=== PATIENT | female | born 1995 | race Caucasian/White ===

== ENCOUNTER 2016-10-04 12:40 | Emergency (ER) | payer MEDICAID ==
[2016-10-04 13:19] VITALS: BP 135/62
== END 2016-10-04 17:28 | disposition left against medical advice (07) ==
LOC: ER 12:40
DX: Z53.21 Procedure and treatment not carried out due to patient leaving prior to being seen by health care provider (principal)

== ENCOUNTER 2016-10-04 19:09 | Emergency (ER) | payer MEDICAID ==
[2016-10-04] MEDS ORDERED: IBUPROFEN 600 MG TABLET PO ONE (21:22)
--- NOTE | 2016-10-04 21:24 | ER Document Report ---
ED ENT - General Chief Complaint: Swollen glands in neck. Stated Complaint: POSSIBLE SWOLLEN NECK LYMPH NODES Time Seen by Provider: 10/04/16 20:54 Mode of Arrival: Ambulatory Notes: -year-old female presents to ED for swollen lymph nodes in the neck bilaterally. She states she has noticed of the 2 days. Tenderness. Denies any signs or symptoms of cold sore throat or any open sores toothache. TRAVEL OUTSIDE OF THE [place] IN LAST 30 DAYS: No - HPI Patient complains to provider of: Other - Lymphadenopathy Onset: Other - 2 days Onset/Duration: Gradual Quality of pain: Other - Sore Severity: Moderate Pain Level: 3 Location of pain: Other - Enlarged lymph nodes bilaterally Associated symptoms: Swollen glands Similar symptoms previously: No Recently seen / treated by doctor: No - Related Data Allergies/Adverse Reactions: No Known Allergies Allergy (Verified 10/04/16 13:16) Past Medical History - General Information source: Patient - Social History Smoking Status: Current Every Day Smoker Cigarette use (# per day): Yes - 5 Cigarettes a day Chew tobacco use (# tins/day): No Smoking Education Provided: Yes - Less than 2 minutes Frequency of alcohol use: Occasional Drug Abuse: None 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 denies: Arthritis, CAD, COPD, CVA, DM, Hyperlipidemia, Hypertension, Thyroid Disfunction - Past Medical History Cardiac Medical History: Reports: None Pulmonary Medical History: Reports: None EENT Medical History: Reports: None Neurological Medical History: Reports: None Endocrine Medical History: Reports: None Renal/ Medical History: Reports: None Malignancy Medical History: Reports: None GI Medical History: Reports: None Musculoskeltal Medical History: Reports None Skin Medical History: Reports None Psychiatric Medical History: Reports: None Traumatic Medical History: Reports: None Infectious Medical History: Reports: None Surgical Hx: Negative Past Surgical History: Reports: None - Immunizations Immunizations up to date: Yes Review of Systems - Review of Systems Constitutional: No symptoms reported EENT: Other - Swollen lymph nodes Cardiovascular: No symptoms reported Respiratory: No symptoms reported Gastrointestinal: No symptoms reported Genitourinary: No symptoms reported Female Genitourinary: No symptoms reported Musculoskeletal: No symptoms reported Skin: No symptoms reported Hematologic/Lymphatic: No symptoms reported Neurological/Psychological: No symptoms reported Physical Exam - Vital signs Vitals: Temp Pulse Resp BP Pulse Ox 98.9 F 88 17 121/50 L 100 10/04/16 19:45 10/04/16 19:45 10/04/16 19:45 10/04/16 19:45 10/04/16 19:45 Interpretation: Normal - General General appearance: Appears well, Alert - HEENT Head: Normocephalic, Atraumatic Eyes: Normal Pupils: PERRL Ears: Normal External canal: Normal Tympanic membrane: Normal Sinus: Normal Nasal: Normal Mouth/Lips: Normal Pharynx: Normal Neck: Anterior cervical chain - Respiratory Respiratory status: No respiratory distress Chest status: Nontender Breath sounds: Normal Chest palpation: Normal - Cardiovascular Rhythm: Regular Heart sounds: Normal auscultation Murmur: No - Abdominal Inspection: Normal Distension: No distension Bowel sounds: Normal Tenderness: Nontender Organomegaly: No organomegaly - Back Back: Normal, Nontender - Extremities General upper extremity: Normal inspection, Nontender, Normal color, Normal ROM , Normal temperature General lower extremity: Normal inspection, Nontender, Normal color, Normal ROM , Normal temperature, Normal weight bearing. No: Nakia's sign - Neurological Neuro grossly intact: Yes Cognition: Normal Orientation: AAOx4 Steff Coma Scale Eye Opening: Spontaneous [place] Coma Scale Verbal: Oriented Steff Coma Scale Motor: Obeys Commands [place] Coma Scale Total: 15 Speech: Normal Motor strength normal: LUE, RUE, LLE, RLE Sensory: Normal - Psychological Associated symptoms: Normal affect, Normal mood - Skin Skin Temperature: Warm Skin Moisture: Dry Skin Color: Normal Course - Vital Signs Vital signs: Temp Pulse Resp BP Pulse Ox 98.9 F 88 17 121/50 L 100 10/04/16 19:45 10/04/16 19:45 10/04/16 19:45 10/04/16 19:45 10/04/16 19:45 Discharge - Discharge Clinical Impression: Lymphadenopathy of head and neck Condition: Stable Disposition: HOME, SELF-CARE Instructions: Family Physicians / Practices Additional Instructions: Lymphadenopathy You have enlargement of lymph glands, called lymphadenopathy. Lymph glands filter tissue fluids. They help to fight infection. Most of the time, enlarged lymph glands are not serious. Lymph glands may react to a viral or bacterial infection by becoming swollen and painful. When the infection goes away, the glands shrink. Sometimes a lymph gland will remain enlarged for a long time after an infection. Occasionally, a lymph gland may be overwhelmed by infection and form an abscess. If an enlarged lymph gland has signs that are suspicious for tumor, the doctor will recommend a biopsy. A suspicious gland usually is NOT painful, grows very slowly, and is rock-hard to touch. See the doctor or return if there is increasing swelling and redness, high fever, difficulty breathing, or any other change for the worse. Anti-Inflammatory Medication You have received a prescription for an antiinflammatory agent. This is an excellent, safe drug for pain control. In addition, it has potent antiinflammatory effects which are beneficial, especially in the treatment of injuries, arthritis, or tendonitis. It's best to take this medicine with food. Persons with ulcer disease or allergy to aspirin should notify their physician of this before taking this drug. Take the medication exactly as prescribed. Don't take additional doses unless instructed to do so by your doctor. If you develop wheezing, shortness of breath, hives, faintness, stomach pain, vomiting, or dark black stools, return for re-evaluation at once. FOLLOW-UP CARE: If you have been referred to a physician for follow-up care, call the physician s office for an appointment as you were instructed or within the next two days. If you experience worsening or a significant change in your symptoms, notify the physician immediately or return to the Emergency Department at any time for re-evaluation. Forms: Smoking Cessation Education, Return to Work
[2016-10-04 21:54] VITALS: BP 111/53
== END 2016-10-04 21:54 | disposition home or self-care (01) ==
LOC: ER 19:09
DX: R59.0 Localized enlarged lymph nodes (principal); F17.210 Nicotine dependence, cigarettes, uncomplicated; Z71.6 Tobacco abuse counseling
CPT/HCPCS: 99283

== ENCOUNTER → 2017-10-02 | Outpatient (CLI) | payer BC, MEDICAID ==
[2017-10-02 17:14] LABS: ABSOLUTE EOSINOPHILS # (AUTO) 0.1 10^3/uL (0.0-0.6); ABSOLUTE LYMPHOCYTES (AUTO) 1.1 10^3/uL (0.5-4.7); ABSOLUTE MONOCYTES (AUTO) 0.8 10^3/uL (0.1-1.4); ABSOLUTE NEUT (AUTO) 8.6 10^3/uL (1.7-8.2); BASOPHILS % (AUTO) 0.3 % (0-2); EOSINOPHILS % (AUTO) 0.6 % (0-6); HEMOGLOBIN 14.1 g/dL (12.0-15.5); LYMPHOCYTES % (AUTO) 10.7 % (13-45); MEAN CORPUSCULAR HEMOGLOBIN 30.4 pg (27.0-33.4); MEAN CORPUSCULAR HGB CONC 34.3 g/dL (32.0-36.0); MEAN CORPUSCULAR VOLUME 89 fl (80-97); MONOCYTES % (AUTO) 7.4 % (3-13); PLATELET COUNT 212 10^3/uL (150-450); RED BLOOD COUNT 4.63 10^6/uL (3.72-5.28); RED CELL DISTRIBUTION WIDTH 14.5 % (11.5-14.0); TOTAL CELLS COUNTED % (AUTO) 100 %; WHITE BLOOD COUNT 10.6 10^3/uL (4.0-10.5)
[2017-10-02 17:33] LABS: A TYPE INFLUENZA AG NEGATIVE (NEGATIVE); B INFLUENZA AG NEGATIVE (NEGATIVE)
== END ==
LOC: OD 16:39
PROVIDERS: ATTEND Nurse Practitioner Acute Care
DX: R50.9 Fever, unspecified (principal)
CPT/HCPCS: 36415; 85025; 87804

== ENCOUNTER 2017-10-04 15:28 | Emergency (ER) | payer BC, MEDICAID ==
[2017-10-04] MEDS ORDERED: NORMAL SALINE 1000 ML 2,000 ML IV ONE (16:03)
[2017-10-04] MEDS ORDERED: KETOROLAC TROMETHAMINE INJ/PF 30 MG/1 ML SDV IV ONE (16:03)
--- NOTE | 2017-10-04 16:10 | ER Document Report ---
ED General - General Chief Complaint: Congestion Stated Complaint: COUGH/CONGESTION Time Seen by Provider: 10/04/17 15:46 Mode of Arrival: Ambulatory Information source: Patient TRAVEL OUTSIDE OF THE [place] IN LAST 30 DAYS: No - HPI Patient complains to provider of: fever, weakness Notes: Patient is here with complaints of fever and weakness. This is a healthy 21- year-old female with no chronic medical conditions. Immunizations are up-to- date. She denies any recent travel outside the [place] or known specific sick contacts. She states that on Monday she started to feel like she was having the flu. She was having fever cough and congestion. She was seen at her primary care office on Monday and reports that she had a negative influenza screen and was placed on Zithromax. She has had 2 doses of Zithromax since that time. She states that today she feels worse than she did before. She continues to have a cough. She states that she has a rash that she developed on Monday. She has had a few episodes of posttussive emesis. Denies any nausea or vomiting otherwise. No diarrhea. She denies any dysuria or hematuria. She denies any blurred or loss vision. She denies any unilateral numbness, tingling, weakness. She states that she noticed that her eyes seem to be yellow today. He does complain of some mild right upper quadrant tenderness. She denies any recent blood transfusions, she denies using IV drugs. She states that she did get a new tattoo 4 months ago, but it everything was sterile that was used. She states that her last sexual activity was 2 months ago. She denies taking large amounts of Tylenol. She denies any vaginal discharge. She denies any difficulty breathing. Complains of some occasional intermittent headaches, but no significant headache and no neck stiffness. She denies any other complaints at this time. - Related Data Allergies/Adverse Reactions: No Known Allergies Allergy (Verified 10/04/17 15:32) Past Medical History - Social History Smoking Status: Unknown if Ever Smoked Frequency of alcohol use: None Drug Abuse: None Family History: Malignancy. denies: Arthritis, CAD, COPD, CVA, DM, Hyperlipidemia, Hypertension, Thyroid Disfunction Patient has suicidal ideation: No Patient has homicidal ideation: No Renal/ Medical History: Denies: Hx Peritoneal Dialysis - Immunizations Immunizations up to date: Yes Review of Systems - Review of Systems -: Yes All other systems reviewed and negative Physical Exam - Vital signs Vitals: Temp Pulse Resp BP Pulse Ox 98.8 F 128 H 18 123/68 100 10/04/17 15:36 10/04/17 15:36 10/04/17 15:36 10/04/17 15:36 10/04/17 15:36 - Notes Notes: GENERAL: alert, cooperative, nontoxic, no distress. HEAD: normocephalic, atraumatic EYES: conjunctiva pink without discharge, no external redness or swelling. Scleral icterus bilaterally. EARS: no external swelling, no external redness. TMs pearly portillo with normal landmarks and no perforation. No erythema. NOSE: atraumatic, no external swelling MOUTH/THROAT: mucous membranes moist and pink, posterior pharynx without swelling, exudate. Mild redness. No intraoral lesions. No trismus or drooling. NECK: soft, supple, full range of motion, no meningismus. CHEST: no distress, lungs clear and equal throughout. No wheezing, rales, rhonchi. CARDIAC: regular rhythm, tachycardia, no murmur, normal capillary refill, normal pulses. No peripheral edema noted. ABDOMEN: Soft, minimal tenderness to palpation of the right upper quadrant. No rebound tenderness or guarding. No pedal splenomegaly. No mass. BACK: full range of motion, no CVA tenderness. EXTREMITIES: full range of motion of all extremities. No redness, no swelling. NEURO: alert and oriented x 3, no focal deficits, full range of motion of all extremities. PYSCH: appropriate mood, affect. Patient is cooperative. SKIN: pink, warm, dry, red macular rash to the arms, upper legs, palms of the hands, soles of the feet. No petechiae. No vesicles. Course - Re-evaluation Re-evalutation: 10/04/17 18:59 Patient is nontoxic-appearing with stable vitals. Initially when she arrived, she was mildly tachycardic, this has improved with IV fluids. Patient states that she has been feeling ill for the last 4 days. She has had "flulike symptoms" including cough, congestion, fever and weakness. She was seen at her primary care doctor's office 2 days ago and was started on Zithromax. She reports having a negative influenza screen at that time. Since that time she seems to be feeling worse. She developed a rash. She also noticed that her eyes seem to be turning yellow. She denies any recent travel outside the [place], IV drug use, significant alcohol or Tylenol intake. She does report getting a new tattoo 4 months ago. She denies any recent blood transfusions. Patient labs show normal white blood cell count, lactate minimally elevated at 2.8. Potassium is slightly low at 3.3. Remainder of her electrolytes are not significantly abnormal. Normal kidney function. LFTs are elevated with a total bilirubin of 5.2, direct bilirubin of 4.2, AST of 124, ALT of 169, alk phos of 419. Rapid strep and rapid mono are negative. Blood gas is normal with a pH of 7.42, PCO2 of 36, bicarbonate 23. HIV, hepatitis, Lyme, [place] spotted fever are all pending at this time. Right upper quadrant sound is negative for acute findings, chest x-ray is negative. Patient is feeling significantly better after IV fluids, Toradol. Urinalysis is negative. Patient appears to be experiencing a nonspecific hepatitis at this time. She does not appear to be septic. [place] spotted fever is unlikely at this time. RPR is currently pending as well. This point the patient will be discharged home with a referral to GI. She was also instructed to follow-up with her primary care doctor at the next available appointment. She should return to the emergency department immediately if she develops any worsening symptoms, high fever, persistent vomiting, or has any further concerns. The patient's emergency department workup and current diagnosis were explained to the patient and or family. Follow-up instructions were provided. Medications if prescribed were discussed. Instructions for when to return to the emergency department including specific worrisome symptoms were discussed with the patient and/or family. The patient is noted to have elevated blood pressure during today's emergency department visit. The patient was informed of this finding. The patient was instructed that this may be related to pre-hypertension and requires further evaluation with a primary care provider. The patient has no hypertensive symptoms at this time. - Vital Signs Vital signs: Temp Pulse Resp BP Pulse Ox 98.9 F 129 H 18 123/68 100 10/04/17 16:28 10/04/17 16:28 10/04/17 15:36 10/04/17 15:36 10/04/17 15:36 - Laboratory Result Diagrams: 10/04/17 16:25 10/04/17 16:25 Laboratory results interpreted by me: 10/04/17 10/04/17 10/04/17 16:25 16:25 16:25 Hct 35.7 L RDW 14.4 H APTT Sodium 136.4 L Potassium 3.3 L Chloride 97 L BUN 6 L Glucose 111 H Lactic Acid 2.8 H Total Bilirubin 5.2 H Direct Bilirubin 4.2 H AST 124 H ALT 169 H Alkaline Phosphatase 419 H Urine Blood Urine Urobilinogen 10/04/17 10/04/17 16:25 18:06 Hct RDW APTT 38.8 H Sodium Potassium Chloride BUN Glucose Lactic Acid Total Bilirubin Direct Bilirubin AST ALT Alkaline Phosphatase Urine Blood SMALL H Urine Urobilinogen 4.0 H - Diagnostic Test Radiology reviewed: Image reviewed, Reports reviewed - Chest x-ray negative, right upper quadrant ultrasound negative. Discharge - Discharge Clinical Impression: Hepatitis, Hypokalemia Condition: Stable Disposition: HOME, SELF-CARE Instructions: Hepatitis ([facility]) Additional Instructions: Drink lots of water. Take Motrin as needed for pain or fever. Avoid taking Tylenol, or drinking alcohol. Follow-up with your primary care doctor at the next available appointment. Follow-up with GI at the next available appointment. Follow-up sooner for increasing pain, fever, persistent vomiting, difficulty breathing or swallowing, or for any further concerns. Your blood pressure was elevated during today's visit. Have this rechecked with your doctor. Forms: Elevated Blood Pressure, Smoking Cessation Education Referrals: KANDIS CAMPBELL NP [Primary Care Provider] - Follow up as needed LANDRY CONCEPCION MD [ACTIVE STAFF] - Follow up as needed
[2017-10-04] MEDS ORDERED: KETOROLAC TROMETHAMINE INJ/PF 30 MG/1 ML SDV ONE (16:19)
[2017-10-04 16:57] LABS: ABSOLUTE EOSINOPHILS # (AUTO) 0.3 10^3/uL (0.0-0.6); ABSOLUTE LYMPHOCYTES (AUTO) 1.5 10^3/uL (0.5-4.7); ABSOLUTE MONOCYTES (AUTO) 1.2 10^3/uL (0.1-1.4); ABSOLUTE NEUT (AUTO) 7.5 10^3/uL (1.7-8.2); BASOPHILS % (AUTO) 0.4 % (0-2); EOSINOPHILS % (AUTO) 2.4 % (0-6); HEMATOCRIT 35.7 % (36.0-47.0); HEMOGLOBIN 12.3 g/dL (12.0-15.5); LYMPHOCYTES % (AUTO) 14.7 % (13-45); MEAN CORPUSCULAR HEMOGLOBIN 30.3 pg (27.0-33.4); MEAN CORPUSCULAR HGB CONC 34.5 g/dL (32.0-36.0); MEAN CORPUSCULAR VOLUME 88 fl (80-97); MONOCYTES % (AUTO) 11.5 % (3-13); PLATELET COUNT 227 10^3/uL (150-450); RED BLOOD COUNT 4.06 10^6/uL (3.72-5.28); RED CELL DISTRIBUTION WIDTH 14.4 % (11.5-14.0); TOTAL CELLS COUNTED % (AUTO) 100 %; WHITE BLOOD COUNT 10.5 10^3/uL (4.0-10.5)
[2017-10-04 17:02] LABS: INTERNATIONAL RATION (INR) 1.14; PROTHROMBIN TIME 15.2 SEC (11.4-15.4)
[2017-10-04 17:03] LABS: PARTIAL THROMBOPLASTIN TIME 38.8 SEC (23.5-35.8); VENOUS BLOOD BASE EXCESS -0.8 mmol/L; VENOUS BLOOD HCO3 23.1 mmol/L (20-32); VENOUS BLOOD PCO2 36.8 mmHg (35-63); VENOUS BLOOD PH 7.42 (7.30-7.42)
[2017-10-04 17:16] LABS: ALANINE AMINOTRANSFERASE 169 U/L (9-52); ALBUMIN 3.8 g/dL (3.5-5.0); ALKALINE PHOSPHATASE 419 U/L (38-126); ANION GAP 15 (5-19); ASPARTATE AMINO TRANSFERASE 124 U/L (14-36); BILIRUBIN,DIRECT 4.2 mg/dL (0.0-0.4); BILIRUBIN,TOTAL 5.2 mg/dL (0.2-1.3); BLOOD UREA NITROGEN 6 mg/dL (7-20); CALCIUM 9.2 mg/dL (8.4-10.2); CARBON DIOXIDE 24 mmol/L (22-30); CHLORIDE 97 mmol/L (98-107); GLUCOSE 111 mg/dL (75-110); POTASSIUM 3.3 mmol/L (3.6-5.0); SODIUM 136.4 mmol/L (137-145); TOTAL PROTEIN 7.1 g/dL (6.3-8.2)
--- NOTE | 2017-10-04 17:36 | RADIOLOGY REPORT (SQ) ---
EXAM DESCRIPTION: CHEST 2 VIEWS COMPLETED DATE/TIME: 10/04/2017 5:11 pm REASON FOR STUDY: fever COMPARISON: 01/03/2013 EXAM PARAMETERS: NUMBER OF VIEWS: two views TECHNIQUE: Digital Frontal and Lateral radiographic views of the chest acquired. RADIATION DOSE: NA LIMITATIONS: none FINDINGS: LUNGS AND PLEURA: No opacities, masses or pneumothorax. No pleural effusion. MEDIASTINUM AND HILAR STRUCTURES: No masses or contour abnormalities. HEART AND VASCULAR STRUCTURES: Heart normal size. No evidence for failure. BONES: No acute findings. HARDWARE: None in the chest. OTHER: No other significant finding. IMPRESSION: NO ACUTE RADIOGRAPHIC FINDING IN THE CHEST. TECHNICAL DOCUMENTATION: JOB ID: [id number] [employer]- All Rights Reserved Reading location - IP/workstation name: [email or web address]
--- NOTE | 2017-10-04 17:45 | RADIOLOGY REPORT (SQ) ---
EXAM DESCRIPTION: U/S ABDOMEN LIMITED W/O DOP COMPLETED DATE/TIME: 10/04/2017 5:21 pm REASON FOR STUDY: ruq pain, jaundice COMPARISON: None. TECHNIQUE: Dynamic and static grayscale images acquired of the abdomen and recorded on PACS. Additio nal selected color Doppler and spectral images recorded. LIMITATIONS: None. FINDINGS: PANCREAS: No masses. Visualized pancreatic duct normal caliber. LIVER: No masses. Echotexture normal. LIVER VASCULATURE: Normal directional flow of the main portal vein. GALLBLADDER: No stones. Normal wall thickness. No pericholecystic fluid. ULTRASOUND-DETECTED CORONA'S SIGN: Negative. INTRAHEPATIC DUCTS AND COMMON DUCT: CBD and intrahepatic ducts normal caliber. No filling defects. INFERIOR VENA CAVA: Normal flow. AORTA: No aneurysm. RIGHT KIDNEY: Normal size. Normal echogenicity. No solid or suspicious masses. No hydronephrosis. No calcifications. PERITONEAL AND RIGHT PLEURAL SPACE: No ascites or effusions. OTHER: No other significant findings. IMPRESSION: NORMAL RIGHT UPPER QUADRANT ULTRASOUND. TECHNICAL DOCUMENTATION: JOB ID: [id number] [employer]- All Rights Reserved Reading location - IP/workstation name: [email or web address]
[2017-10-04 18:24] LABS: APPEARANCE,URINE CLEAR; BILIRUBIN,URINE NEGATIVE (NEGATIVE); GLUCOSE, URINE NEGATIVE (NEGATIVE); KETONES,URINE NEGATIVE (NEGATIVE); LEUKOCYTE ESTERASE,URINE NEGATIVE (NEGATIVE); NITRITE,URINE NEGATIVE (NEGATIVE); PROTEIN,URINE NEGATIVE (NEGATIVE); URINE SPECIFIC GRAVITY 1.005
[2017-10-04 18:30] LABS: COLOR,URINE YELLOW
[2017-10-04] MEDS ORDERED: POTASSIUM CHLORIDE 10 MEQ TABLET.SA PO ONE (18:59)
[2017-10-04 19:13] VITALS: BP 117/58
[2017-10-06 06:39] LABS: HEPATITIS A AB IGM Negative (Negative); HEPATITIS B CORE AB IGM Negative (Negative); HEPATITS B SURFACE ANTIGEN Negative (Negative)
[2017-10-07 11:59] LABS: HEPATITIS C VIRUS ANTIBODY <0.1 s/co ratio (0.0-0.9); LYME DISEASE IGM AB <0.80 index (0.00-0.79)
[2017-10-07 11:59] LABS: ROCKY MTN SPOTTED FEV IGG EIA Negative (Negative)
== END 2017-10-04 19:30 | disposition home or self-care (01) ==
LOC: ER 15:28
DX: K75.9 Inflammatory liver disease, unspecified (principal); E87.6 Hypokalemia; R50.9 Fever, unspecified; R53.1 Weakness; R05 Cough; R21 Rash and other nonspecific skin eruption; R10.811 Right upper quadrant abdominal tenderness; R51 Headache; R00.0 Tachycardia, unspecified; R03.0 Elevated blood-pressure reading, without diagnosis of hypertension
CPT/HCPCS: 99284; 96361; 96374; 36415; 87040; 87070; 87880; 85025; 85610; 85730; 81025; 87077; 86308; 86592; 80053; 81001; 86757 ×2; 86701; 82803; 83605; 80074; 86618 ×2; 86617 ×2; 71046; 76705; J1885; J7030

== ENCOUNTER 2017-10-05 00:07 | Emergency (ER) | payer BC ==
[2017-10-05] MEDS ORDERED: PIPERACILLIN/TAZOBACTAM 3.375 GM VIAL IV ONE (00:24)
[2017-10-05] MEDS ORDERED: FENTANYL CITRATE INJ/PF 100 MCG/2 ML AMPUL IV ONE (00:24)
--- NOTE | 2017-10-05 00:25 | ER Document Report ---
ED General - General Chief Complaint: Flank Pain Stated Complaint: FLANK PAIN Time Seen by Provider: 10/05/17 00:22 Mode of Arrival: Medic Information source: Patient Notes: 21-year-old female presents with continued abdominal pain and vomiting. Patient notes she was just seen have been having 2 days of just not feeling well was diagnosed with hepatitis. Patient notes she has felt warm on and off. Patient states she was told to hydrate and try to but continued to vomit and presented back for reevaluation TRAVEL OUTSIDE OF THE [place] IN LAST 30 DAYS: No - HPI Onset: Just prior to arrival Onset/Duration: Sudden Quality of pain: No pain Severity: Mild Pain Level: 1 Associated symptoms: Nausea, Vomiting Exacerbated by: Denies Relieved by: Denies Similar symptoms previously: Yes Recently seen / treated by doctor: Yes - Related Data Allergies/Adverse Reactions: No Known Allergies Allergy (Verified 10/04/17 15:32) Past Medical History - Social History Smoking Status: Never Smoker Cigarette use (# per day): No Chew tobacco use (# tins/day): No Smoking Education Provided: No Family History: Malignancy. denies: Arthritis, CAD, COPD, CVA, DM, Hyperlipidemia, Hypertension, Thyroid Disfunction Renal/ Medical History: Denies: Hx Peritoneal Dialysis - Immunizations Immunizations up to date: Yes Review of Systems - Review of Systems Notes: REVIEW OF SYSTEMS: CONSTITUTIONAL : Denies fever, chills, or sweats. Denies recent illness. EENT: Denies eye, ear, throat, or mouth pain or symptoms. Denies nasal or sinus congestion or discharge. Denies throat, tongue, or mouth swelling or difficulty swallowing. CARDIOVASCULAR: Denies chest pain. Denies palpitations or racing or irregular heart beat. Denies ankle edema. RESPIRATORY: Denies cough, cold, or chest congestion. Denies shortness of breath, difficulty breathing, or wheezing. GASTROINTESTINAL: admits to abd pain nausea vomiting GENITOURINARY: Denies difficulty urinating, painful urination, burning, frequency, blood in urine, or discharge. FEMALE GENITOURINARY: Denies vaginal bleeding, heavy or abnormal periods, irregular periods. Denies vaginal discharge or odor. MUSCULOSKELETAL: Denies back or neck pain or stiffness. Denies joint pain or swelling. SKIN: Denies rash, lesions or sores. HEMATOLOGIC : Denies easy bruising or bleeding. LYMPHATIC: Denies swollen, enlarged glands. NEUROLOGICAL: Denies confusion or altered mental status. Denies passing out or loss of consciousness. Denies dizziness or lightheadedness. Denies headache. Denies weakness or paralysis or loss of use of either side. Denies problems with gait or speech. Denies sensory loss, numbness, or tingling. Denies seizures. PSYCHIATRIC: Denies anxiety or stress. Denies depression, suicidal ideation, or homicidal ideation. ALL OTHER SYSTEMS REVIEWED AND NEGATIVE. PHYSICAL EXAMINATION: GENERAL: ill-appearing, in moderate distress. HEAD: Atraumatic, normocephalic. EYES: jaundiced ENT: Nares patent, oropharynx clear without exudates. Moist mucous membranes. NECK: Normal range of motion, supple without lymphadenopathy LUNGS: Breath sounds clear to auscultation bilaterally and equal. No wheezes rales or rhonchi. HEART: tachycardic ABDOMEN: tender in the epigastric and ruq with guarding Female : deferred Musculoskeletal: Normal range of motion, no pitting or edema. No cyanosis. NEUROLOGICAL: Cranial nerves grossly intact. Normal speech, normal gait. Normal sensory, motor exams PSYCH: Normal mood, normal affect. SKIN: jaundiced Dictation was performed using [employer] voice recognition software Physical Exam - Vital signs Vitals: Temp Pulse Resp BP Pulse Ox 101.5 F H 122 H 20 114/46 L 97 10/05/17 00:10 10/05/17 00:10 10/05/17 00:10 10/05/17 00:10 10/05/17 00:10 Course - Re-evaluation Re-evalutation: I spoke with Dr gonzalez, he notes need for ERCP which we cannot perform, requests transfer 10/05/17 00:29 Pt noted to have fever, tachycardia, with labs just a few hours . pt has signs of choledocolithiasis vs hepatitis 10/05/17 01:00 Dr Torres accepts for transfer 10/05/17 01:09 - Vital Signs Vital signs: Temp Pulse Resp BP Pulse Ox 101.5 F H 122 H 34 H 114/46 L 97 10/05/17 00:10 10/05/17 00:10 10/05/17 00:16 10/05/17 00:10 10/05/17 00:10 - Laboratory Result Diagrams: 10/05/17 00:30 10/05/17 00:30 Laboratory results interpreted by me: 10/05/17 10/05/17 10/05/17 00:30 00:30 00:30 Hct 35.6 L RDW 14.7 H Monocytes % 13.9 H Absolute Monocytes 1.5 H VBG pCO2 33.2 L Sodium 136.4 L Carbon Dioxide 20 L BUN 5 L Total Bilirubin 5.2 H Direct Bilirubin 4.3 H AST 109 H ALT 152 H Alkaline Phosphatase 390 H Discharge - Discharge Clinical Impression: Hepatitis Fever Qualifiers: Fever type: unspecified Qualified Code(s): R50.9 - Fever, unspecified Abdominal pain Qualifiers: Abdominal location: right upper quadrant Qualified Code(s): R10.11 - Right upper quadrant pain Condition: Fair Disposition: [facility] Referrals: KANDIS CAMPBELL NP [Primary Care Provider] - Follow up as needed
[2017-10-05] MEDS ORDERED: IBUPROFEN 600 MG TABLET PO ONE (00:38)
[2017-10-05] MEDS: NORMAL SALINE 1000 ML 1,000 ML IV PRN ×2 (00:49→04:14)
[2017-10-05 00:52] LABS: ABSOLUTE BASOPHILS # (AUTO) 0.1 10^3/uL (0.0-0.2); ABSOLUTE EOSINOPHILS # (AUTO) 0.4 10^3/uL (0.0-0.6); ABSOLUTE LYMPHOCYTES (AUTO) 1.8 10^3/uL (0.5-4.7); ABSOLUTE MONOCYTES (AUTO) 1.5 10^3/uL (0.1-1.4); ABSOLUTE NEUT (AUTO) 6.8 10^3/uL (1.7-8.2); BASOPHILS % (AUTO) 0.6 % (0-2); EOSINOPHILS % (AUTO) 3.4 % (0-6); HEMATOCRIT 35.6 % (36.0-47.0); HEMOGLOBIN 12.5 g/dL (12.0-15.5); LYMPHOCYTES % (AUTO) 17.1 % (13-45); MEAN CORPUSCULAR HGB CONC 35.1 g/dL (32.0-36.0); MEAN CORPUSCULAR VOLUME 88 fl (80-97); MONOCYTES % (AUTO) 13.9 % (3-13); PLATELET COUNT 216 10^3/uL (150-450); RED BLOOD COUNT 4.04 10^6/uL (3.72-5.28); RED CELL DISTRIBUTION WIDTH 14.7 % (11.5-14.0); TOTAL CELLS COUNTED % (AUTO) 100 %; VENOUS BLOOD BASE EXCESS -2.2 mmol/L; VENOUS BLOOD HCO3 21.1 mmol/L (20-32); VENOUS BLOOD PCO2 33.2 mmHg (35-63); VENOUS BLOOD PH 7.42 (7.30-7.42); WHITE BLOOD COUNT 10.4 10^3/uL (4.0-10.5)
[2017-10-05 00:55] LABS: INTERNATIONAL RATION (INR) 1.16; PROTHROMBIN TIME 15.4 SEC (11.4-15.4)
[2017-10-05 01:06] LABS: ALANINE AMINOTRANSFERASE 152 U/L (9-52); ALBUMIN 3.5 g/dL (3.5-5.0); ALKALINE PHOSPHATASE 390 U/L (38-126); ANION GAP 13 (5-19); ASPARTATE AMINO TRANSFERASE 109 U/L (14-36); BILIRUBIN,DIRECT 4.3 mg/dL (0.0-0.4); BILIRUBIN,TOTAL 5.2 mg/dL (0.2-1.3); BLOOD UREA NITROGEN 5 mg/dL (7-20); CALCIUM 8.6 mg/dL (8.4-10.2); CARBON DIOXIDE 20 mmol/L (22-30); CHLORIDE 103 mmol/L (98-107); GLUCOSE 105 mg/dL (75-110); POTASSIUM 3.8 mmol/L (3.6-5.0); SODIUM 136.4 mmol/L (137-145); TOTAL PROTEIN 6.7 g/dL (6.3-8.2)
[2017-10-05 02:23] LABS: APPEARANCE,URINE CLEAR; BILIRUBIN,URINE NEGATIVE (NEGATIVE); COLOR,URINE YELLOW; GLUCOSE, URINE NEGATIVE (NEGATIVE); KETONES,URINE NEGATIVE (NEGATIVE); LEUKOCYTE ESTERASE,URINE NEGATIVE (NEGATIVE); NITRITE,URINE NEGATIVE (NEGATIVE); PROTEIN,URINE NEGATIVE (NEGATIVE); URINE SPECIFIC GRAVITY 1.002; UROBILINOGEN,URINE NEGATIVE mg/dL (<2.0)
[2017-10-05] MEDS ORDERED: BENZONATATE 100 MG CAPSULE PO ONE (02:35)
[2017-10-05 04:25] VITALS: BP 102/58
== END 2017-10-05 04:40 | disposition short-term general hospital (02) ==
LOC: ER 00:07
DX: K75.9 Inflammatory liver disease, unspecified (principal); R11.2 Nausea with vomiting, unspecified; R10.11 Right upper quadrant pain; R50.9 Fever, unspecified; R00.0 Tachycardia, unspecified
CPT/HCPCS: 99285; 96375; 96365; 36415; 87040; 87086; 85025; 85610; 80053; 81001; 82803; 83605; J3010; J7030; J2543

== ENCOUNTER 2018-05-27 12:08 | Emergency (ER) | payer BC ==
[2018-05-27] MEDS ORDERED: NORMAL SALINE 1000 ML 1,000 ML IV ONE (12:39)
--- NOTE | 2018-05-27 12:41 | ER Document Report ---
ED Medical Screen (RME) - General Chief Complaint: Nausea/Vomiting Stated Complaint: VOMITING Time Seen by Provider: 05/27/18 12:34 Primary Care Provider: KANDIS CAMPBELL NP [Primary Care Provider] - Follow up as needed Information source: Patient Notes: 22-year-old female who is 7-8 weeks presents emergency department with complaints of nausea, vomiting, hematemesis. She says there was bright red blood in the vomit earlier. Patient states that she is followed up at the health department and had a positive test there. She is not followed up with an BUILDING INSPECTION ENGINEER or had an ultrasound. Patient denies any abdominal pain, abdominal cramping, vaginal bleeding, vaginal discharge. She states that the nausea and vomiting from earlier had stopped. I have greeted and performed a rapid initial assessment of this patient. A comprehensive ED assessment and evaluation of the patient, analysis of test results and completion of the medical decision making process will be conducted by additional ED providers. PHYSICAL EXAMINATION: GENERAL: Well-appearing, well-nourished and in no acute distress. HEAD: Atraumatic, normocephalic. EYES: Pupils equal round extraocular movements intact, conjunctiva are normal. ENT: Nares patent NECK: Normal range of motion LUNGS: No respiratory distress Musculoskeletal: Normal range of motion NEUROLOGICAL: Normal speech, normal gait. PSYCH: Normal mood, normal affect. SKIN: Warm, Dry, normal turgor, no rashes or lesions noted. TRAVEL OUTSIDE OF THE [place] IN LAST 30 DAYS: No - Related Data Allergies/Adverse Reactions: No Known Allergies Allergy (Verified 05/27/18 12:09) Past Medical History Renal/ Medical History: Denies: Hx Peritoneal Dialysis - Immunizations Immunizations up to date: Yes Physical Exam - Vital signs Vitals: Temp Pulse Resp BP Pulse Ox 98.7 F 71 16 116/49 L 100 05/27/18 12:18 05/27/18 12:18 05/27/18 12:18 05/27/18 12:18 05/27/18 12:18 Course - Vital Signs Vital signs: Temp Pulse Resp BP Pulse Ox 98.7 F 71 16 116/49 L 100 05/27/18 12:18 05/27/18 12:18 05/27/18 12:18 05/27/18 12:18 05/27/18 12:18 Doctor's Discharge - Discharge Referrals: KANDIS CAMPBELL NP [Primary Care Provider] - Follow up as needed
[2018-05-27 13:32] LABS: ABSOLUTE EOSINOPHILS # (AUTO) 0.1 10^3/uL (0.0-0.6); ABSOLUTE LYMPHOCYTES (AUTO) 1.8 10^3/uL (0.5-4.7); ABSOLUTE MONOCYTES (AUTO) 0.6 10^3/uL (0.1-1.4); ABSOLUTE NEUT (AUTO) 3.5 10^3/uL (1.7-8.2); BASOPHILS % (AUTO) 0.7 % (0-2); HEMATOCRIT 40.8 % (36.0-47.0); HEMOGLOBIN 14.4 g/dL (12.0-15.5); LYMPHOCYTES % (AUTO) 30.3 % (13-45); MEAN CORPUSCULAR HEMOGLOBIN 32.4 pg (27.0-33.4); MEAN CORPUSCULAR HGB CONC 35.2 g/dL (32.0-36.0); MEAN CORPUSCULAR VOLUME 92 fl (80-97); MONOCYTES % (AUTO) 9.9 % (3-13); PLATELET COUNT 253 10^3/uL (150-450); RED BLOOD COUNT 4.43 10^6/uL (3.72-5.28); RED CELL DISTRIBUTION WIDTH 13.6 % (11.5-14.0); SEGMENTED NEUTROPHILS % (AUTO) 58.1 % (42-78); TOTAL CELLS COUNTED % (AUTO) 100 %
[2018-05-27] MEDS ORDERED: FAMOTIDINE INJ/PF 20 MG/2 ML SDV IV ONE (13:38)
[2018-05-27 13:43] LABS: APPEARANCE,URINE CLEAR; BILIRUBIN,URINE NEGATIVE (NEGATIVE); COLOR,URINE YELLOW; GLUCOSE, URINE NEGATIVE (NEGATIVE); KETONES,URINE NEGATIVE (NEGATIVE); LEUKOCYTE ESTERASE,URINE NEGATIVE (NEGATIVE); NITRITE,URINE NEGATIVE (NEGATIVE); PROTEIN,URINE NEGATIVE (NEGATIVE); UROBILINOGEN,URINE NEGATIVE mg/dL (<2.0)
--- NOTE | 2018-05-27 13:44 | ER Document Report ---
ED General - General Chief Complaint: Nausea/Vomiting Stated Complaint: VOMITING Time Seen by Provider: 05/27/18 12:34 Primary Care Provider: [facility] [Provider [facility] - Follow up in 3-5 days KANDIS CAMPBELL NP [ALLIED HEALTH PROFESSIONAL] - Follow up as needed TRAVEL OUTSIDE OF THE [place] IN LAST 30 DAYS: No - HPI Notes: Patient is a 22-year-old female that presents to the emergency department for chief complaint of hematemesis. Patient reports being 7 or 8 weeks . She has had a moderate amount of morning sickness throughout this . She states today she had an episode of vomiting with bright red emesis. She states it was mucousy and streaky red without clots. She denied eating any red food. She denies melena or black stools. Patient is not taking any medication at home daily including nausea medicine. She denied any associated abdominal pain. She denies any lower pelvic pain, vaginal bleeding, vaginal discharge, dysuria and urinary frequency. Patient . Currently she states her nausea has significantly improved and she is feeling much better. Past Medical History: Negative Past Surgical History: Negative Social History: Denies drugs alcohol and tobacco Family History: Reviewed and noncontributory for presenting illness Allergies: Reviewed, see documented allergy list. REVIEW OF SYSTEMS: CONSTITUTIONAL : No fever No chills No diaphoresis No recent illness EENT: No vision changes No congestion No sore throat CARDIOVASCULAR: No chest pain No palpitations RESPIRATORY: No shortness of breath No cough No difficulty breathing GASTROINTESTINAL: No abdominal pain nausea vomiting No diarrhea GENITOURINARY: No dysuria No hematuria No difficulty urinating MUSCULOSKELETAL: No back pain No leg pain No arm pain SKIN: No rashes No lesions LYMPHATIC: No swollen, enlarged glands. NEUROLOGICAL: No lightheadedness No headache No weakness No paresthesias PSYCHIATRIC: No anxiety No depression PHYSICAL EXAMINATION: Vital signs reviewed, nursing noted reviewed. GENERAL: Well-appearing, well-nourished and in no acute distress. HEAD: Atraumatic, normocephalic. EYES: Eyes appear normal, extraocular movements intact, sclera anicteric, conjunctiva are normal. ENT: nares patent, oropharynx clear without exudates. Moist mucous membranes. NECK: Normal range of motion, supple without lymphadenopathy LUNGS: Breath sounds clear to auscultation bilaterally and equal. No wheezes rales or rhonchi. HEART: Regular rate and rhythm without murmurs ABDOMEN: Soft, nontender, normoactive bowel sounds. No rebound, guarding, or rigidity. No masses appreciated. EXTREMITIES: Nontender, good range of motion, no pitting or edema. NEUROLOGICAL: No focal neurological deficits. Moves all extremities spontaneously Motor and sensory grossly intact on exam. PSYCH: Normal mood, normal affect. SKIN: Warm, Dry, normal turgor, no rashes or lesions noted on exposed skin - Related Data Allergies/Adverse Reactions: No Known Allergies Allergy (Verified 05/27/18 12:09) Past Medical History - General Information source: Patient - Social History Smoking Status: Former Smoker Family History: Malignancy. denies: Arthritis, CAD, COPD, CVA, DM, Hyperlipidemia, Hypertension, Thyroid Disfunction Patient has suicidal ideation: No Patient has homicidal ideation: No Renal/ Medical History: Denies: Hx Peritoneal Dialysis - Immunizations Immunizations up to date: Yes Physical Exam - Vital signs Vitals: Temp Pulse Resp BP Pulse Ox 98.7 F 71 16 116/49 L 100 05/27/18 12:18 05/27/18 12:18 05/27/18 12:18 05/27/18 12:18 05/27/18 12:18 Course - Re-evaluation Re-evalutation: 05/27/18 13:41 Vitals reviewed. Nursing notes reviewed. Patient is hemodynamically stable. She is currently asymptomatic. Her abdominal exam is soft and nontender. She has not had any abdominal pain or vaginal bleeding to suggest workup for ectopic . Patient has been followed by the health department and has an appointment tomorrow for further HOUSE FATHER care. Her nausea and hematemesis has stopped. Patient will be given IV Pepcid for her hematemesis. 05/27/18 14:34 Patient's lab work is unremarkable. She has a normal hemoglobin. She does not have any electrolyte derangements to suggest severe vomiting. Patient on reeval uation is again asymptomatic. She was encouraged to follow tomorrow with the health department as already scheduled. She was counseled on return precautions and verbalized understanding. She is stable at discharge. Laboratory 05/27/18 05/27/18 05/27/18 13:00 13:00 13:00 WBC 6.0 RBC 4.43 Hgb 14.4 Hct 40.8 MCV 92 MCH 32.4 MCHC 35.2 RDW 13.6 Plt Count 253 Seg Neutrophils % 58.1 Lymphocytes % 30.3 Monocytes % 9.9 Eosinophils % 1.0 Basophils % 0.7 Absolute Neutrophils 3.5 Absolute Lymphocytes 1.8 Absolute Monocytes 0.6 Absolute Eosinophils 0.1 Absolute Basophils 0.0 Sodium 139.4 Potassium 4.4 Chloride 104 Carbon Dioxide 25 Anion Gap 10 BUN 13 Creatinine 0.63 Est GFR ( Amer) > 60 Est GFR (Non-Af Amer) > 60 Glucose 86 Calcium 9.6 Total Bilirubin 0.5 Direct Bilirubin 0.2 Neonat Total Bilirubin Not Reportable Neonat Direct Bilirubin Not Reportable Neonat Indirect Bili Not Reportable AST 36 ALT 28 Alkaline Phosphatase 47 Total Protein 7.0 Albumin 4.7 Lipase 34.4 Beta HCG, Quant 14126.00 H Total Beta HCG POSITIVE Urine Color YELLOW Urine Appearance CLEAR Urine pH 7.0 Ur Specific [place]don 1.010 Urine Protein NEGATIVE Urine Glucose (UA) NEGATIVE Urine Ketones NEGATIVE Urine Blood NEGATIVE Urine Nitrite NEGATIVE Urine Bilirubin NEGATIVE Urine Urobilinogen NEGATIVE Ur Leukocyte Esterase NEGATIVE Urine WBC (Auto) 0 Urine Bacteria (Auto) TRACE Squamous Epi Cells Auto 4 Urine Mucus (Auto) RARE Urine Ascorbic Acid NEGATIVE - Vital Signs Vital signs: Temp Pulse Resp BP Pulse Ox 98.7 F 71 16 116/49 L 100 05/27/18 12:18 05/27/18 12:18 05/27/18 12:18 05/27/18 12:18 05/27/18 12:18 - Laboratory Result Diagrams: 05/27/18 13:00 05/27/18 13:00 Laboratory results interpreted by me: 05/27/18 13:00 Beta HCG, Quant 74029.00 H Discharge - Discharge Clinical Impression: Nausea/vomiting in Hematemesis Qualifiers: Nausea presence: with nausea Qualified Code(s): K92.0 - Hematemesis Condition: Stable Disposition: HOME, SELF-CARE Additional Instructions: Please return to the emergency department if you have any worsening, or concern of your symptoms. Please return to the emergency department if you develop chest pain, difficulty breathing, severe abdominal pain, or ongoing vomiting. Please follow-up with your primary care physician in 2-3 days and any other recommended physicians. If prescribed, take all medications as directed. If you have any questions or concerns do not hesitate to return the emergency department for evaluation. Return to the emergency room if you have any more vomiting of bright red blood, abdominal pain, or vaginal bleeding. Prescriptions: Ranitidine HCl [Zantac 150 mg Tablet] 150 mg PO DAILY #30 tablet Referrals: KANDIS CAMPBELL NP [ALLIED HEALTH PROFESSIONAL] - Follow up as needed [facility] [Provider Group] - Follow up in 3-5 days
[2018-05-27 13:48] LABS: ALANINE AMINOTRANSFERASE 28 U/L (9-52); ALBUMIN 4.7 g/dL (3.5-5.0); ALKALINE PHOSPHATASE 47 U/L (38-126); ANION GAP 10 (5-19); ASPARTATE AMINO TRANSFERASE 36 U/L (14-36); BILIRUBIN,DIRECT 0.2 mg/dL (0.0-0.4); BILIRUBIN,TOTAL 0.5 mg/dL (0.2-1.3); BLOOD UREA NITROGEN 13 mg/dL (7-20); CALCIUM 9.6 mg/dL (8.4-10.2); CARBON DIOXIDE 25 mmol/L (22-30); CHLORIDE 104 mmol/L (98-107); GLUCOSE 86 mg/dL (75-110); LIPASE 34.4 U/L (23-300); POTASSIUM 4.4 mmol/L (3.6-5.0); SODIUM 139.4 mmol/L (137-145)
[2018-05-27 14:46] VITALS: BP 109/49
== END 2018-05-27 14:45 | disposition home or self-care (01) ==
LOC: ER 12:08
DX: O99.619 Diseases of the digestive system complicating pregnancy, unspecified trimester (principal); K92.0 Hematemesis; Z3A.00 Weeks of gestation of pregnancy not specified; Z87.891 Personal history of nicotine dependence
CPT/HCPCS: 99284; 96361; 96374; 36415; 87086; 84702; 83690; 85025; 80053; 81001; J7030; S0028

== ENCOUNTER 2018-08-05 18:28 | Emergency (ER) | payer BC, MEDICAID ==
[2018-08-05 22:02] LABS: ABSOLUTE BASOPHILS # (AUTO) 0.1 10^3/uL (0.0-0.2); ABSOLUTE EOSINOPHILS # (AUTO) 0.1 10^3/uL (0.0-0.6); ABSOLUTE LYMPHOCYTES (AUTO) 2.2 10^3/uL (0.5-4.7); ABSOLUTE MONOCYTES (AUTO) 0.4 10^3/uL (0.1-1.4); ABSOLUTE NEUT (AUTO) 3.5 10^3/uL (1.7-8.2); BASOPHILS % (AUTO) 0.8 % (0-2); HEMATOCRIT 40.5 % (36.0-47.0); HEMOGLOBIN 14.3 g/dL (12.0-15.5); LYMPHOCYTES % (AUTO) 35.3 % (13-45); MEAN CORPUSCULAR HEMOGLOBIN 32.8 pg (27.0-33.4); MEAN CORPUSCULAR HGB CONC 35.2 g/dL (32.0-36.0); MEAN CORPUSCULAR VOLUME 93 fl (80-97); PLATELET COUNT 195 10^3/uL (150-450); RED BLOOD COUNT 4.35 10^6/uL (3.72-5.28); RED CELL DISTRIBUTION WIDTH 13.5 % (11.5-14.0); SEGMENTED NEUTROPHILS % (AUTO) 54.9 % (42-78); TOTAL CELLS COUNTED % (AUTO) 100 %; WHITE BLOOD COUNT 6.4 10^3/uL (4.0-10.5)
[2018-08-05 22:16] LABS: ALANINE AMINOTRANSFERASE 27 U/L (9-52); ALBUMIN 4.7 g/dL (3.5-5.0); ALKALINE PHOSPHATASE 50 U/L (38-126); ANION GAP 9 (5-19); ASPARTATE AMINO TRANSFERASE 33 U/L (14-36); BILIRUBIN,DIRECT 0.3 mg/dL (0.0-0.4); BILIRUBIN,TOTAL 0.5 mg/dL (0.2-1.3); BLOOD UREA NITROGEN 11 mg/dL (7-20); CALCIUM 9.7 mg/dL (8.4-10.2); CARBON DIOXIDE 26 mmol/L (22-30); CHLORIDE 104 mmol/L (98-107); GLUCOSE 74 mg/dL (75-110); POTASSIUM 4.3 mmol/L (3.6-5.0); SODIUM 139.2 mmol/L (137-145); TOTAL PROTEIN 7.4 g/dL (6.3-8.2)
[2018-08-05 22:21] LABS: APPEARANCE,URINE CLEAR; BILIRUBIN,URINE NEGATIVE (NEGATIVE); COLOR,URINE YELLOW; GLUCOSE, URINE NEGATIVE (NEGATIVE); KETONES,URINE 20 mg/dL (NEGATIVE); LEUKOCYTE ESTERASE,URINE NEGATIVE (NEGATIVE); NITRITE,URINE NEGATIVE (NEGATIVE); PROTEIN,URINE NEGATIVE (NEGATIVE); URINE SPECIFIC GRAVITY 1.011; UROBILINOGEN,URINE NEGATIVE mg/dL (<2.0)
[2018-08-05 22:45] LABS: BACTERIA (WET MOUNT) 3+ BACTERIA SEEN; EPITHELIALS (WET MOUNT) 3+ EPITHELIALS SEEN; RBCS (WET MOUNT) NO RBCS SEEN; T.VAGINALIS (WET MOUNT) NO TRICHOMONAS SEEN; WBCS (WET MOUNT) NO WBCS SEEN; YEAST (WET MOUNT) NO YEAST SEEN
--- NOTE | 2018-08-05 23:14 | RADIOLOGY REPORT (SQ) ---
EXAM DESCRIPTION: US TRANSVAGINAL COMPLETED DATE/TME: 08/05/2018 22:15 CLINICAL HISTORY: 22 years, Female, LLQ abd pain, possible cyst or torsion COMPARISON: None. TECHNIQUE: Transverse and longitudinal transvaginal sonographic images of the pelvis LIMITATIONS: None. FINDINGS: Uterus measures 7.9 x 4.1 x 5.1 cm. Myometrium is homogenous. Thickened, heterogeneous appearance to the endometrium measuring 2.9 cm in greatest diameter. Normal flow to each ovary. Small amount of free fluid. This could be physiologic. The right ovary measures 3 by 2 x 2 centimeters, the left 3 x 2 x 3 cm. Bilateral ovarian follicles. A 2.9 x 2.3 x 2.9 cm complex cyst of the left ovary likely reflects a complex dominant follicle or hemorrhagic follicle. No solid adnexal mass IMPRESSION: Diffusely heterogeneous, thickened appearance to the endometrium. Gynecologic follow-up is recommended. Probable complex or hemorrhagic dominant follicle of the left ovary. Follow-up recommended, as below. Recommendations for f/u of ovarian complex cysts (1): Endometrioma: <= 7 cm: US f/u 6-12 wks. If not surgically resected, US f/u annually. >7 cm: Consider MR w/IVC or surgical evaluation. If not surgically resected, US f/u annually. Dermoid: <= 5 cm: MR w/IV contrast. If not surgically resected, US f/u annually. >5 cm: Surgical evaluation. If not surgically resected, MR w/IVC; then US f/u annually Indeterminate cyst - multiple thin <=3 mm septations: Any size in any age: Consider surgical evaluation. Indeterminate cyst - non-hyperechoic nodule w/o blood flow: Any size in any age: Consider MR w/IVC or surgical evaluation. Indeterminate cyst - other, not classic for but suggestive of hemorrhagic cyst, endometrioma or dermoid: Pre-menopause: <= 7 cm: US f/u 6-12 weeks. If unchanged, continue f/u with US or consider MR w/IVC. If these do not confirm endometrioma or dermoid, consider surgical evaluation. >7 cm: Consider MR w/IVC or surgical evaluation. Post-menopause (>=1 year from last menstrual period): Any size: Consider surgical evaluation. Cyst worrisome for malignancy (thick, irregular >=3 mm septations or nodule with blood flow): Any size in any age: Consider surgical evaluation. (1) Recommendations based upon the 2010 SRU Consensus Conference Statement on the Management of Asymptomatic Ovarian and Other Adnexal Cysts Imaged at US: Radiology. 2009;256(3):943-54 copyright 2011 [employer]- All Rights Reserved
[2018-08-06 00:16] LABS: CHLAM PCR NOT DETECTED (NOT DETECT); GON PCR NOT DETECTED (NOT DETECT)
--- NOTE | 2018-08-06 01:04 | ER Document Report ---
Entered by ADDIS CLEMENT SCRIBE 08/05/18 1257 Acting as scribe for:ROBERT CAMPOS DO ED GI/ - General Chief Complaint: Pelvic Pain Stated Complaint: LOWER BACK/ABDOMINAL PAIN Time Seen by Provider: 08/05/18 19:42 Primary Care Provider: KATARZYNA VANCE MD [ACTIVE STAFF] - Follow up in 1 week Mode of Arrival: Ambulatory Information source: Patient Notes: 22-year-old female status post surgical at 12 weeks gestation on 07/03/2018 who presents to the emergency department today with complaints of a x3-day history of left sided low back and flank pain which becomes exacerbated with movement. Patient states that she also has "slight" abdominal pain but this is "not uncommon for her". Patient states that she had some vaginal ble eding after the procedure which they told her she should expect. Patient states the vaginal bleeding subsided a while ago. Patient denies dysuria, fever, history of kidney stones, vaginal discharge, vaginal bleeding, nausea, vomiting, or diarrhea. TRAVEL OUTSIDE OF THE [place] IN LAST 30 DAYS: No - Related Data Allergies/Adverse Reactions: No Known Allergies Allergy (Verified 08/05/18 18:30) Past Medical History - General Information source: Patient - Social History Smoking Status: Never Smoker Cigarette use (# per day): No Chew tobacco use (# tins/day): No Frequency of alcohol use: Occasional Drug Abuse: None Lives with: Family Family History: Malignancy Patient has suicidal ideation: No Patient has homicidal ideation: No - Past Medical History Cardiac Medical History: Reports: Other - Hx of SVT Past Surgical History: Reports: Other - surgical 07/03/2018 - Immunizations Immunizations up to date: Yes Review of Systems - Review of Systems Constitutional: No symptoms reported EENT: No symptoms reported Cardiovascular: No symptoms reported Respiratory: No symptoms reported Gastrointestinal: See HPI, Abdominal pain - "slight" lower abdominal pain. denies: Diarrhea, Nausea, Vomiting Genitourinary: See HPI, Flank pain - left. denies: Dysuria, Hematuria Female Genitourinary: See HPI, Other - Surgical @12 weeks on 07/03/2018. denies: Vaginal discharge, Vaginal bleeding Musculoskeletal: No symptoms reported Skin: No symptoms reported Hematologic/Lymphatic: No symptoms reported Neurological/Psychological: No symptoms reported -: Yes All other systems reviewed and negative Physical Exam - Vital signs Vitals: Temp Pulse Resp BP Pulse Ox 98 F 65 16 130/55 H 100 08/05/18 18:50 08/05/18 18:50 08/05/18 18:50 08/05/18 18:50 08/05/18 18:50 - Notes Notes: PHYSICAL EXAM GENERAL: Alert, interacts well. No acute distress. HEAD: Normocephalic, atraumatic. EYES: Pupils equal, round, and reactive to light. Extraocular movements intact. ENT: Oral mucosa moist, tongue midline. NECK: Full range of motion. Supple. Trachea midline. LUNGS: Clear to auscultation bilaterally, no wheezes, rales, or rhonchi. No respiratory distress. HEART: Regular rate and rhythm. 2/6 end of systolic murmur best heard at the upper sternal border. No gallops or rubs. ABDOMEN: Soft, non-tender. Non-distended. Bowel sounds present in all 4 quadrants. No guarding, rigidity, or rebound. BACK: No CVA tenderness with percussion. EXTREMITIES: Moves all 4 extremities spontaneously. No edema, radial and dorsalis pedis pulses 2/4 bilaterally. No cyanosis. NEUROLOGICAL: Alert and oriented x3. Normal speech. PSYCH: Normal affect, normal mood. SKIN: Warm, dry, normal turgor. No rashes or lesions noted. Course - Re-evaluation Re-evalutation: 08/06/18 00:52 CBC unremarkable, CMP unremarkable, test is positive but the beta quantitative hCG is 28.03, this is consistent with downtrending from her approximately 1 month ago, urinalysis unremarkable, wet prep shows 3+ epithelials and 3+ bacteria however her pelvic exam is not consistent with bacterial vaginosis. No trichomonas or yeast were seen. Chlamydia and gonorrhea were negative, transvaginal ultrasound showed a 2.9 x 2.3 x 2.9 cm complex cyst of the left ovary which likely represents a dominant follicle complex cyst or hemorrhagic follicle. She also has a diffusely heterogeneous thickened appearance to the endometrium. Gynecologic follow-up is recommended. Discussed the case with Dr. Vance who is the CORRUGATOR HELPER on-call, agrees that the quite low beta hCG is likely related to the 1 month ago. Patient will be discharged home on Advil and Tylenol and follow-up with CORRUGATOR HELPER in the next week if her pain does not improve. - Vital Signs Vital signs: Temp Pulse Resp BP Pulse Ox 98 F 65 16 130/55 H 100 08/05/18 18:50 08/05/18 18:50 08/05/18 18:50 08/05/18 18:50 08/05/18 18:50 - Laboratory Result Diagrams: 08/05/18 21:38 08/05/18 21:38 Laboratory results interpreted by me: 08/05/18 08/05/18 08/05/18 21:38 21:38 21:38 Glucose 74 L Serum HCG, Qual POSITIVE H Beta HCG, Quant 28.03 H Urine Ketones 08/05/18 21:48 Glucose Serum HCG, Qual Beta HCG, Quant Urine Ketones 20 H Discharge - Discharge Clinical Impression: Left ovarian cyst Condition: Stable Disposition: HOME, SELF-CARE Additional Instructions: You have a cyst on your left ovary. You will need to have an ultrasound repeated in approximately 1 month to ensure that the cyst goes away. Please use ibuprofen (Motrin or Advil) 600-800 mg every 8 hours as needed for pain or fever. You may also use acetaminophen (Tylenol) 1000 mg every 4-6 hours as needed for pain or fever. Please be aware that many medications contain acetaminophen, do not exceed a total of 1000 mg of acetaminophen every 6 hours. Return for fever, increasing abdominal pain, vomiting or any new or concerning symptoms. If your pain persists over the next week or worsens please follow-up with [facility]. As we discussed in the room it is very important that you have a Pap smear performed. All sexually active females need to have Pap smears performed in order to help to identify cervical cancer early and to prevent cervical cancer. Referrals: KATARZYNA VANCE MD [ACTIVE STAFF] - Follow up in 1 week I personally performed the services described in the documentation, reviewed and edited the documentation which was dictated to the scribe in my presence, and it accurately records my words and actions.
[2018-08-06 02:32] VITALS: BP 126/60
== END 2018-08-06 00:30 | disposition home or self-care (01) ==
LOC: ER 18:28
DX: O34.81 Maternal care for other abnormalities of pelvic organs, first trimester (principal); N83.202 Unspecified ovarian cyst, left side; R10.2 Pelvic and perineal pain; Z3A.12 12 weeks gestation of pregnancy
CPT/HCPCS: 36415; 76817; 80053; 81001; 84702; 84703; 85025; 86900; 86901; 87210; 87491; 87591; 93976; 99284

== ENCOUNTER 2018-12-19 14:52 | Emergency (ER) | payer BC, MEDICAID ==
[2018-12-19] MEDS ORDERED: NORMAL SALINE 1000 ML 1,000 ML IV ONE (15:35)
--- NOTE | 2018-12-19 15:37 | ER Document Report ---
ED Medical Screen (RME) - General Chief Complaint: Abdominal Pain Stated Complaint: VOMITING Time Seen by Provider: 12/19/18 15:35 Mode of Arrival: Ambulatory Information source: Patient Notes: 23-year-old female presented to ED for complaint of right upper quadrant abdominal pain nausea and vomiting yesterday but no vomiting today. She states it is very sharp pain for about a week. She states it is right up under her right ribs and goes around to the back. She states every time she eats her abdomen barrera. States last menstrual period was last week. She states she has a history of cytomegalovirus which she was treated in [place] for but no other medical history. She is a former smoker drinks about once a week and does not do any drugs. 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 Patient is alert oriented respirations regular and unlabored speaking in full sentences walks with a even steady gait. I have greeted and performed a rapid initial assessment of this patient. A comprehensive ED assessment and evaluation of the patient, analysis of test results and completion of medical decision making process will be conducted by an additional ED providers. TRAVEL OUTSIDE OF THE [place] IN LAST 30 DAYS: No - Related Data Allergies/Adverse Reactions: No Known Allergies Allergy (Verified 12/19/18 14:54) Past Medical History Renal/ Medical History: Denies: Hx Peritoneal Dialysis Past Surgical History: Reports: Other - surgical 07/03/2018 - Immunizations Immunizations up to date: Yes Physical Exam - Vital signs Vitals: Temp Pulse Resp BP Pulse Ox 98.7 F 82 13 119/57 L 98 12/19/18 15:15 12/19/18 15:15 12/19/18 15:15 12/19/18 15:15 12/19/18 15:15 Course - Vital Signs Vital signs: Temp Pulse Resp BP Pulse Ox 98.7 F 82 13 119/57 L 98 12/19/18 15:15 12/19/18 15:15 12/19/18 15:15 12/19/18 15:15 12/19/18 15:15
[2018-12-19 16:07] LABS: ABSOLUTE BASOPHILS # (AUTO) 0.1 10^3/uL (0.0-0.2); ABSOLUTE EOSINOPHILS # (AUTO) 0.1 10^3/uL (0.0-0.6); ABSOLUTE MONOCYTES (AUTO) 0.5 10^3/uL (0.1-1.4); ABSOLUTE NEUT (AUTO) 2.5 10^3/uL (1.7-8.2); BASOPHILS % (AUTO) 1.1 % (0-2); EOSINOPHILS % (AUTO) 1.9 % (0-6); HEMATOCRIT 45.1 % (36.0-47.0); HEMOGLOBIN 15.6 g/dL (12.0-15.5); MEAN CORPUSCULAR HEMOGLOBIN 31.8 pg (27.0-33.4); MEAN CORPUSCULAR HGB CONC 34.5 g/dL (32.0-36.0); MEAN CORPUSCULAR VOLUME 92 fl (80-97); MONOCYTES % (AUTO) 9.2 % (3-13); PLATELET COUNT 260 10^3/uL (150-450); RED BLOOD COUNT 4.89 10^6/uL (3.72-5.28); RED CELL DISTRIBUTION WIDTH 13.1 % (11.5-14.0); SEGMENTED NEUTROPHILS % (AUTO) 48.8 % (42-78); TOTAL CELLS COUNTED % (AUTO) 100 %; WHITE BLOOD COUNT 5.2 10^3/uL (4.0-10.5)
[2018-12-19 16:17] LABS: APPEARANCE,URINE SLIGHTLY-CLOUDY; BILIRUBIN,URINE NEGATIVE (NEGATIVE); GLUCOSE, URINE NEGATIVE (NEGATIVE); KETONES,URINE 20 mg/dL (NEGATIVE); LEUKOCYTE ESTERASE,URINE NEGATIVE (NEGATIVE); NITRITE,URINE NEGATIVE (NEGATIVE); PROTEIN,URINE NEGATIVE (NEGATIVE); URINE SPECIFIC GRAVITY 1.025
[2018-12-19 16:21] LABS: COLOR,URINE YELLOW
[2018-12-19 16:38] LABS: ALBUMIN 5.7 g/dL (3.5-5.0); ALKALINE PHOSPHATASE 55 U/L (38-126); ANION GAP 14 (5-19); ASPARTATE AMINO TRANSFERASE 41 U/L (14-36); BILIRUBIN,DIRECT 0.4 mg/dL (0.0-0.4); BLOOD UREA NITROGEN 13 mg/dL (7-20); CALCIUM 10.8 mg/dL (8.4-10.2); CARBON DIOXIDE 25 mmol/L (22-30); CHLORIDE 101 mmol/L (98-107); GLUCOSE 89 mg/dL (75-110); POTASSIUM 4.3 mmol/L (3.6-5.0); TOTAL PROTEIN 9.1 g/dL (6.3-8.2)
--- NOTE | 2018-12-19 17:36 | RADIOLOGY REPORT (SQ) ---
EXAM DESCRIPTION: U/S ABDOMEN LIMITED W/O DOP COMPLETED DATE/TIME: 12/19/2018 5:27 pm REASON FOR STUDY: right upper quad abdominal pain NV COMPARISON: 10/04/2017 TECHNIQUE: Dynamic and static grayscale images acquired of the abdomen and recorded on PACS. Nadineo donna selected color Doppler and spectral images recorded. LIMITATIONS: None. FINDINGS: PANCREAS: No masses. Visualized pancreatic duct normal caliber. LIVER: No masses. Echotexture normal. LIVER VASCULATURE: Normal directional flow of the main portal vein and hepatic veins. GALLBLADDER: No stones. Normal wall thickness. No pericholecystic fluid. ULTRASOUND-DETECTED CORONA'S SIGN: Negative. INTRAHEPATIC DUCTS AND COMMON DUCT: CBD and intrahepatic ducts normal caliber. No filling defects. INFERIOR VENA CAVA: Normal flow. AORTA: No aneurysm. RIGHT KIDNEY: Normal size. Normal echogenicity. No solid or suspicious masses. No hydronephrosis. No calcifications. PERITONEAL AND RIGHT PLEURAL SPACE: No ascites or effusions. OTHER: No other significant findings. IMPRESSION: NORMAL RIGHT UPPER QUADRANT ULTRASOUND. TECHNICAL DOCUMENTATION: JOB ID: [id number]- All Rights Reserved Reading location - IP/workstation name: [email or web address]
[2018-12-19] MEDS ORDERED: ONDANSETRON ODT 4 MG TAB (6 TAB/ER DISP) PO PRN (18:29)
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
[2018-12-19 18:37] VITALS: BP 115/55
== END 2018-12-19 18:48 | disposition home or self-care (01) ==
LOC: ER 14:52
DX: R10.11 Right upper quadrant pain (principal); R11.2 Nausea with vomiting, unspecified; R09.89 Other specified symptoms and signs involving the circulatory and respiratory systems; Z87.891 Personal history of nicotine dependence
CPT/HCPCS: 99284; 96360; 96361; 36415; 83690; 84703; 85025; 80053; 81001; 76705; J7030

== ENCOUNTER 2019-05-11 10:20 | Emergency (ER) | payer BC, MEDICAID ==
[2019-05-11 11:30] LABS: ABSOLUTE EOSINOPHILS # (AUTO) 0.1 10^3/uL (0.0-0.6); ABSOLUTE LYMPHOCYTES (AUTO) 1.5 10^3/uL (0.5-4.7); ABSOLUTE MONOCYTES (AUTO) 0.4 10^3/uL (0.1-1.4); BASOPHILS % (AUTO) 1.1 % (0-2); EOSINOPHILS % (AUTO) 2.4 % (0-6); HEMATOCRIT 42.9 % (36.0-47.0); HEMOGLOBIN 14.9 g/dL (12.0-15.5); LYMPHOCYTES % (AUTO) 37.7 % (13-45); MEAN CORPUSCULAR HEMOGLOBIN 32.5 pg (27.0-33.4); MEAN CORPUSCULAR HGB CONC 34.8 g/dL (32.0-36.0); MEAN CORPUSCULAR VOLUME 93 fl (80-97); MONOCYTES % (AUTO) 8.9 % (3-13); PLATELET COUNT 206 10^3/uL (150-450); RED CELL DISTRIBUTION WIDTH 13.4 % (11.5-14.0); SEGMENTED NEUTROPHILS % (AUTO) 49.9 % (42-78); TOTAL CELLS COUNTED % (AUTO) 100 %; WHITE BLOOD COUNT 4.1 10^3/uL (4.0-10.5)
[2019-05-11 11:45] LABS: ALBUMIN 4.7 g/dL (3.5-5.0); ALKALINE PHOSPHATASE 44 U/L (38-126); ANION GAP 10 (5-19); ASPARTATE AMINO TRANSFERASE 30 U/L (14-36); BILIRUBIN,DIRECT 0.2 mg/dL (0.0-0.4); BILIRUBIN,TOTAL 0.8 mg/dL (0.2-1.3); BLOOD UREA NITROGEN 15 mg/dL (7-20); CALCIUM 9.7 mg/dL (8.4-10.2); CARBON DIOXIDE 26 mmol/L (22-30); CHLORIDE 104 mmol/L (98-107); CREATINE KINASE 85 U/L (30-135); GLUCOSE 86 mg/dL (75-110); POTASSIUM 4.6 mmol/L (3.6-5.0); TOTAL PROTEIN 7.6 g/dL (6.3-8.2)
[2019-05-11 11:57] LABS: CREATINE KINASE MB 0.39 ng/mL (<4.55)
[2019-05-11 12:06] LABS: TROPONIN I < 0.012 ng/mL
[2019-05-11 12:43] LABS: APPEARANCE,URINE SLIGHTLY-CLOUDY; BILIRUBIN,URINE NEGATIVE (NEGATIVE); COLOR,URINE YELLOW; GLUCOSE, URINE NEGATIVE (NEGATIVE); KETONES,URINE 20 mg/dL (NEGATIVE); LEUKOCYTE ESTERASE,URINE NEGATIVE (NEGATIVE); NITRITE,URINE NEGATIVE (NEGATIVE); PROTEIN,URINE 30 mg/dL (NEGATIVE); URINE SPECIFIC GRAVITY 1.021; UROBILINOGEN,URINE NEGATIVE mg/dL (<2.0)
[2019-05-11 12:56] LABS: URINE AMPHETAMINES SCREEN NEGATIVE; URINE BARBITURATES SCREEN NEGATIVE; URINE BENZODIAZEPINES SCREEN NEGATIVE; URINE COCAINE SCREEN NEGATIVE; URINE METHADONE SCREEN NEGATIVE; URINE PHENCYCLIDINE SCREEN NEGATIVE
[2019-05-11 12:57] LABS: URINE MARIJUANA (THC) SCREEN UNCONFIRMED POSITIVE
--- NOTE | 2019-05-11 13:17 | ER Document Report ---
ED General - General Chief Complaint: Chest Pain Stated Complaint: ABDOMINAL PAIN/CHEST PAIN,TIGHTNESS Time Seen by Provider: 05/11/19 12:02 Primary Care Provider: DINO GARVEY MD [ACTIVE STAFF] - Follow up as needed FRANTZ PORRAS MD [ACTIVE STAFF] - Follow up as needed EVARISTO ARRIAZA MD [ACTIVE STAFF] - Follow up as needed MUNIRA IVY MD [EMERITUS] - Follow up as needed Mode of Arrival: Ambulatory Information source: Patient Notes: 23-year-old female presents emergency department with complaints of chest and upper back pain. Reports approximately 2 weeks ago she had some right upper quadrant abdominal pain. She reports that is gone now. She reports the pain moved into her chest and she has sharp stabbing pains that comes and goes. She also reports it moved around her upper back. She reports that her symptoms feel sore. Denies trauma. Denies fever vomiting diarrhea but reports some nausea on occasion. Also reports she gets full really quick when she eats. Her stomach feels bloated. She denies pain with void. Denies vaginal discharge. Denies . She gives history of SVT when she was 3 weeks old. Also reports CMV approximately 2 years ago. Today she woke up and her chest felt tight and she felt short of breath so she came to the emergency department. She reports nothing makes the pain worse or better she reports it just comes at random times. TRAVEL OUTSIDE OF THE [place] IN LAST 30 DAYS: No - HPI Onset: Other - 2Weeks ago Onset/Duration: Waxing and waning Quality of pain: Sharp Associated symptoms: Nausea Exacerbated by: Denies Relieved by: Denies Similar symptoms previously: No Recently seen / treated by doctor: No - Related Data Allergies/Adverse Reactions: No Known Allergies Allergy (Verified 05/11/19 10:51) Past Medical History - General Information source: Patient Last Menstrual Period: 2 weeks ago - Social History Smoking Status: Former Smoker Cigarette use (# per day): No Frequency of alcohol use: Occasional Drug Abuse: Marijuana Occupation: [employer] Lives with: Friend - boy friend Family History: Malignancy Patient has suicidal ideation: No Patient has homicidal ideation: No - Medical History Medical History: Other - CMV - Past Medical History Cardiac Medical History: Reports: Other - SVT when she was 3 weeks old Renal/ Medical History: Denies: Hx Peritoneal Dialysis Past Surgical History: Reports: Other - surgical 07/03/2018 - Immunizations Immunizations up to date: Yes Review of Systems - Review of Systems Notes: Review HPI for review of systems., All other systems negative Physical Exam - Vital signs Vitals: Temp Pulse Resp BP Pulse Ox 98.2 F 91 22 H 126/73 H 100 05/11/19 10:36 05/11/19 10:36 05/11/19 10:36 05/11/19 10:36 05/11/19 10:36 - Notes Notes: PHYSICAL EXAMINATION: GENERAL: Well-appearing and in no acute distress HEAD: Atraumatic, normocephalic. EYES: Pupils equal round and reactive to light, extraocular movements intact, sclera anicteric, conjunctiva are normal. ENT: nares patent, oropharynx clear without exudates. Moist mucous membranes. NECK: Normal range of motion, supple without lymphadenopathy LUNGS: CTAB and equal. No wheezes rales or rhonchi. HEART: Regular rate and rhythm without murmurs ABDOMEN: Soft, slight RUQ tenderness. No guarding, no rebound BACK: C/O Upper mid back soreness, denies CVA tenderness EXTREMITIES: Normal range of motion, no pitting edema. No cyanosis. NEUROLOGICAL: Cranial nerves grossly intact. Normal sensory/motor exams. PSYCH: Normal mood, normal affect. SKIN: Warm, Dry, normal turgor, no rashes or lesions noted Course - Re-evaluation Re-evalutation: 05/11/19 13:32 23-year-old female presents with right upper quad radiating to her chest and upp er back for the past 2 weeks. Reviewed EKG with Dr. Iniguez. 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 Advises bladder ultrasound, ambulate patient with monitor to assess SOB. Antacid if discharged. Patient instructed on plan of care, she agrees. Denies pain at this time. 05/11/19 15:43 Labs unremarkable, negative troponin, ultrasound negative chest x-ray negative. Patient is resting quietly no distress. Denies pain at this time. Patient was able to ambulate all the way to ultrasound without shortness of breath. Heart rate stayed in the 60-70s.. She denied chest pain while walking. Patient was instructed on WPW. She was given written information on this. She was also instructed on the importance of follow-up with primary care provider follow-up with cardiology. She was given strict return instructions. She verbalized understanding to all instructions. At this time I feel patient is safe to be discharged home. EKG is reviewed and interpreted by me. EKG shows sinus rhythm with a rate of [address] segment elevation or depression. No ischemic T wave inversions. [place] interval, QRS duration, QT intervals are within normal range. 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 no old EKG available for comparison but EKG strips reviewed which show possible delta wave at that time. The patient has atypical chest pain. The patient's chest pain is not suggestive of pulmonary embolus, cardiac ischemia, aortic dissection or other serious etiology. Given the extremely low risk for these diagnosis, further testing and evaluation for these possibilities does not appear to be indicated at this time. The patient has been instructed to return if the symptoms worsen or change in any way. Laboratory 05/11/19 05/11/19 05/11/19 11:04 11:04 11:04 WBC 4.1 RBC 4.60 Hgb 14.9 Hct 42.9 MCV 93 MCH 32.5 MCHC 34.8 RDW 13.4 Plt Count 206 Lymph % (Auto) 37.7 Rapides % (Auto) 8.9 Eos % (Auto) 2.4 Baso % (Auto) 1.1 Absolute Neuts (auto) 2.0 Absolute Lymphs (auto) 1.5 Absolute Monos (auto) 0.4 Absolute Eos (auto) 0.1 Absolute Basos (auto) 0.0 Seg Neutrophils % 49.9 Sodium 140.1 Potassium 4.6 Chloride 104 Carbon Dioxide 26 Anion Gap 10 BUN 15 Creatinine 0.90 Est GFR ( Amer) > 60 Est GFR (MDRD) Non-Af > 60 Glucose 86 Calcium 9.7 Total Bilirubin 0.8 Direct Bilirubin 0.2 Neonat Total Bilirubin Not Reportable Neonat Direct Bilirubin Not Reportable Neonat Indirect Bili Not Reportable AST 30 ALT 17 Alkaline Phosphatase 44 Creatine Kinase 85 CK-MB (CK-2) 0.39 Troponin I < 0.012 Total Protein 7.6 Albumin 4.7 Lipase Urine Color Urine Appearance Urine pH Ur Specific [place] Urine Protein Urine Glucose (UA) Urine Ketones Urine Blood Urine Nitrite Urine Bilirubin Urine Urobilinogen Ur Leukocyte Esterase Urine WBC (Auto) Urine RBC (Auto) Urine Bacteria (Auto) Squamous Epi Cells Auto Urine Mucus (Auto) Urine Ascorbic Acid Urine HCG, Qual Urine Opiates Screen Urine Methadone Screen Ur Barbiturates Screen Ur Phencyclidine Scrn Ur Amphetamines Screen U Benzodiazepines Scrn Urine Cocaine Screen U Marijuana (THC) Screen 05/11/19 05/11/19 05/11/19 11:04 12:10 12:10 WBC RBC Hgb Hct MCV MCH MCHC RDW Plt Count Lymph % (Auto) Rapides % (Auto) Eos % (Auto) Baso % (Auto) Absolute Neuts (auto) Absolute Lymphs (auto) Absolute Monos (auto) Absolute Eos (auto) Absolute Basos (auto) Seg Neutrophils % Sodium Potassium Chloride Carbon Dioxide Anion Gap BUN Creatinine Est GFR ( Amer) Est GFR (MDRD) Non-Af Glucose Calcium Total Bilirubin Direct Bilirubin Neonat Total Bilirubin Neonat Direct Bilirubin Neonat Indirect Bili AST ALT Alkaline Phosphatase Creatine Kinase CK-MB (CK-2) Troponin I Total Protein Albumin Lipase 31.6 Urine Color YELLOW Urine Appearance SLIGHTLY-CLOUDY Urine pH 7.0 Ur Specific [place] 1.021 Urine Protein 30 H Urine Glucose (UA) NEGATIVE Urine Ketones 20 H Urine Blood NEGATIVE Urine Nitrite NEGATIVE Urine Bilirubin NEGATIVE Urine Urobilinogen NEGATIVE Ur Leukocyte Esterase NEGATIVE Urine WBC (Auto) 1 Urine RBC (Auto) 1 Urine Bacteria (Auto) 1+ Squamous Epi Cells Auto 8 Urine Mucus (Auto) FEW Urine Ascorbic Acid 40 H Urine HCG, Qual NEGATIVE Urine Opiates Screen NEGATIVE Urine Methadone Screen NEGATIVE Ur Barbiturates Screen NEGATIVE Ur Phencyclidine Scrn NEGATIVE Ur Amphetamines Screen NEGATIVE U Benzodiazepines Scrn NEGATIVE Urine Cocaine Screen NEGATIVE U Marijuana (THC) Screen UNCONFIRMED POSITIVE 05/11/19 14:17 WBC RBC Hgb Hct MCV MCH MCHC RDW Plt Count Lymph % (Auto) Rapides % (Auto) Eos % (Auto) Baso % (Auto) Absolute Neuts (auto) Absolute Lymphs (auto) Absolute Monos (auto) Absolute Eos (auto) Absolute Basos (auto) Seg Neutrophils % Sodium Potassium Chloride Carbon Dioxide Anion Gap BUN Creatinine Est GFR ( Amer) Est GFR (MDRD) Non-Af Glucose Calcium Total Bilirubin Direct Bilirubin Neonat Total Bilirubin Neonat Direct Bilirubin Neonat Indirect Bili AST ALT Alkaline Phosphatase Creatine Kinase CK-MB (CK-2) Troponin I < 0.012 Total Protein Albumin Lipase Urine Color Urine Appearance Urine pH Ur Specific [place] Urine Protein Urine Glucose (UA) Urine Ketones Urine Blood Urine Nitrite Urine Bilirubin Urine Urobilinogen Ur Leukocyte Esterase Urine WBC (Auto) Urine RBC (Auto) Urine Bacteria (Auto) Squamous Epi Cells Auto Urine Mucus (Auto) Urine Ascorbic Acid Urine HCG, Qual Urine Opiates Screen Urine Methadone Screen Ur Barbiturates Screen Ur Phencyclidine Scrn Ur Amphetamines Screen U Benzodiazepines Scrn Urine Cocaine Screen U Marijuana (THC) Screen Chest X-Ray 05/11/19 13:07 IMPRESSION: NO ACUTE RADIOGRAPHIC FINDING IN THE CHEST. Abdomen Ultrasound 05/11/19 13:29 IMPRESSION: NORMAL RIGHT UPPER QUADRANT ULTRASOUND. - Vital Signs Vital signs: Temp Pulse Resp BP Pulse Ox 98.2 F 91 19 115/69 99 05/11/19 10:36 05/11/19 10:36 05/11/19 16:16 05/11/19 16:17 05/11/19 16:16 - Laboratory Result Diagrams: 05/11/19 11:04 05/11/19 11:04 Laboratory results interpreted by me: 05/11/19 12:10 Urine Protein 30 H Urine Ketones 20 H Urine Ascorbic Acid 40 H - Diagnostic Test Radiology reviewed: Image reviewed, Reports reviewed - EKG Interpretation by [place] EKG shows normal: Sinus rhythm Additional EKG results interpreted by me: 05/11/19 16:[address] elevation, no t wave inversion, possible WPW Discharge - Discharge Clinical Impression: Upper back pain, Vesce-Tplqsqmzw-Xfwfd (WPW) pattern Abdominal pain Qualifiers: Abdominal location: right upper quadrant Qualified Code(s): R10.11 - Right up per quadrant pain Chest pain Qualifiers: Chest pain type: unspecified Qualified Code(s): R07.9 - Chest pain, unspecified Condition: Stable Disposition: HOME, SELF-CARE Instructions: Abdominal Pain ([facility]), Antacid Therapy ([facility]), Chest Pain of Uncle ar Cause ([facility]), Family Physicians / Practices, Use of Ygir-Vbw-Tvrchyj Ibuprofen ([facility]) Additional Instructions: *You have been evaluated for abdominal pain, chest pain, upper back pain *Your EKG shows possible [id number]-Xtmps *Your labs were unremarkable. Your chest x-ray does not show pneumonia. Your ultrasound did not show gallbladder disease *Take medication as prescribed *Follow up with a primary care provider within 1 week for referral to cardiology *Return to ED for worsening condition, changes, needs *Return to ED if not better in 24 hours Prescriptions: Ranitidine HCl [Zantac] 150 mg PO BID #30 tablet Forms: Return to Work Referrals: DINO GARVEY MD [ACTIVE STAFF] - Follow up as needed EVARISTO ARRIAZA MD [ACTIVE STAFF] - Follow up as needed FRANTZ PORRAS MD [ACTIVE STAFF] - Follow up as needed MUNIRA IVY MD [EMERITUS] - Follow up as needed
--- NOTE | 2019-05-11 14:18 | RADIOLOGY REPORT (SQ) ---
EXAM DESCRIPTION: CHEST 2 VIEWS COMPLETED DATE/TIME: 05/11/2019 1:02 pm REASON FOR STUDY: chest pain COMPARISON: None. EXAM PARAMETERS: NUMBER OF VIEWS: two views TECHNIQUE: Digital Frontal and Lateral radiographic views of the chest acquired. RADIATION DOSE: NA LIMITATIONS: none FINDINGS: LUNGS AND PLEURA: No opacities, masses or pneumothorax. No pleural effusion. MEDIASTINUM AND HILAR STRUCTURES: No masses or contour abnormalities. HEART AND VASCULAR STRUCTURES: Heart normal size. No evidence for failure. BONES: No acute findings. HARDWARE: None in the chest. OTHER: No other significant finding. IMPRESSION: NO ACUTE RADIOGRAPHIC FINDING IN THE CHEST. TECHNICAL DOCUMENTATION: JOB ID: [id number] [employer]- All Rights Reserved Reading location - IP/workstation name: [email or web address]
--- NOTE | 2019-05-11 15:13 | EKG REPORT ---
SEVERITY:- ABNORMAL ECG - SINUS RHYTHM VENTRICULAR PREEXCITATION - LEFT LATERAL ACCESSORY PATHWAY : Confirmed by: Zelalem Olsen MD 11-May-2019 15:12:44
--- NOTE | 2019-05-11 15:25 | RADIOLOGY REPORT (SQ) ---
EXAM DESCRIPTION: U/S ABDOMEN LIMITED W/O DOP COMPLETED DATE/TIME: 05/11/2019 3:08 pm REASON FOR STUDY: ruq pain COMPARISON: Abdominal ultrasound 10/04/2017, 12/19/2018 TECHNIQUE: Dynamic and static grayscale images acquired of the abdomen and recorded on PACS. Additio nal selected color Doppler and spectral images recorded. LIMITATIONS: None. FINDINGS: PANCREAS: Midline pancreas unremarkable LIVER: No masses. Echotexture normal. LIVER VASCULATURE: Normal directional flow of the main portal vein and hepatic veins. GALLBLADDER: No stones. Normal wall thickness. No pericholecystic fluid. ULTRASOUND-DETECTED CORONA'S SIGN: Negative. INTRAHEPATIC DUCTS AND COMMON DUCT: CBD and intrahepatic ducts normal caliber. No filling defects. INFERIOR VENA CAVA: Normal flow. AORTA: No aneurysm. RIGHT KIDNEY: Normal size. Normal echogenicity. No solid or suspicious masses. No hydronephrosis. No calcifications. PERITONEAL AND RIGHT PLEURAL SPACE: No ascites or effusions. OTHER: No other significant findings. IMPRESSION: NORMAL RIGHT UPPER QUADRANT ULTRASOUND. TECHNICAL DOCUMENTATION: JOB ID: [id number] [employer]- All Rights Reserved Reading location - IP/workstation name: [email or web address]
[2019-05-11 16:29] VITALS: BP 115/69
== END 2019-05-11 16:33 | disposition home or self-care (01) ==
LOC: ER 10:20
DX: M54.6 Pain in thoracic spine (principal); R10.11 Right upper quadrant pain; I45.6 Pre-excitation syndrome; R07.9 Chest pain, unspecified; R11.0 Nausea
CPT/HCPCS: 36415; 71046; 76705; 80053; 80307; 81001; 81025; 82550; 82553; 83690; 84484; 85025; 93005; 93010; 99285

== ENCOUNTER → 2019-05-20 | Outpatient (CLI) | payer BC | LOC: OD 11:06 | PROVIDERS: ATTEND Physician Assistant | DX: R07.9 Chest pain, unspecified (principal) | CPT/HCPCS: 36415; 83735; 84443 ==

== ENCOUNTER 2019-10-31 20:12 | Emergency (ER) | payer BC ==
--- NOTE | 2019-10-31 22:49 | ER Document Report ---
ED Medical Screen (RME) - General Chief Complaint: Abdominal Pain Stated Complaint: ABDOMINAL PAIN, BACK PAIN Time Seen by Provider: 10/31/19 22:45 Primary Care Provider: LOGAN LEWIS PA-C [Primary Care Provider] - Follow up as needed Notes: Patient presents complaining of lower pelvic pain for the past week and has been off and on. Patient states pain is sharp and will occasionally radiate around to her back. Patient denies any fever nausea, vomiting, urinary symptoms, vaginal bleeding or discharge. I have greeted and performed a rapid initial assessment of this patient. A comprehensive ED assessment and evaluation of the patient, analysis of test results and completion of the medical decision making process will be conducted by additional ED providers. TRAVEL OUTSIDE OF THE [place] IN LAST 30 DAYS: No - Related Data Allergies/Adverse Reactions: No Known Allergies Allergy (Verified 05/11/19 10:51) Past Medical History Renal/ Medical History: Denies: Hx Peritoneal Dialysis Past Surgical History: Reports: Other - surgical 07/03/2018 - Immunizations Immunizations up to date: Yes Physical Exam - Vital signs Vitals: Temp Pulse Resp BP Pulse Ox 98.1 F 93 16 118/67 98 10/31/19 20:16 10/31/19 20:16 10/31/19 20:16 10/31/19 20:16 10/31/19 20:16 - Abdominal Tenderness: Tender - Lower pelvic - Back Back: No: CVA tenderness Course - Vital Signs Vital signs: Temp Pulse Resp BP Pulse Ox 98.1 F 93 16 118/67 98 10/31/19 20:16 10/31/19 20:16 10/31/19 20:16 10/31/19 20:16 10/31/19 20:16 Doctor's Discharge - Discharge Referrals: LOGAN LEWIS PA-C [Primary Care Provider] - Follow up as needed
--- NOTE | 2019-11-01 00:25 | RADIOLOGY REPORT (SQ) ---
Ultrasound pelvis transvaginal on 11/01/2019 at 12:00 AM CLINICAL INDICATION: Pelvic pain COMPARISON: None FINDINGS: Multiple sonographic images are obtained throughout the pelvis by transvaginal approach, both transverse and sagittal images are obtained. The uterus is retroverted/retroflexed. The uterus measures approximately 6.0 x 2.9 x 4.0 cm. Endometrial stripe measures 2 mm which is within normal limits. Uterine myometrium appears homogeneous. The right ovary measures approximately 2.7 x 1.7 x 1.3 cm. Flow is demonstrated in the right ovary. The left ovary measures approximately 2.0 x 1.0 x 1.0 cm. Flow is demonstrated in the left ovary. No adnexal mass or fluid collection is noted. No free fluid is noted. IMPRESSION: Unremarkable exam.
[2019-11-01 01:37] LABS: ABSOLUTE EOSINOPHILS # (AUTO) 0.1 10^3/uL (0.0-0.6); ABSOLUTE LYMPHOCYTES (AUTO) 2.4 10^3/uL (0.5-4.7); ABSOLUTE MONOCYTES (AUTO) 0.5 10^3/uL (0.1-1.4); ABSOLUTE NEUT (AUTO) 3.3 10^3/uL (1.7-8.2); BASOPHILS % (AUTO) 0.8 % (0-2); EOSINOPHILS % (AUTO) 1.9 % (0-6); HEMATOCRIT 41.6 % (36.0-47.0); HEMOGLOBIN 14.7 g/dL (12.0-15.5); LYMPHOCYTES % (AUTO) 37.3 % (13-45); MEAN CORPUSCULAR HEMOGLOBIN 32.7 pg (27.0-33.4); MEAN CORPUSCULAR HGB CONC 35.4 g/dL (32.0-36.0); MEAN CORPUSCULAR VOLUME 92 fl (80-97); MONOCYTES % (AUTO) 7.4 % (3-13); PLATELET COUNT 252 10^3/uL (150-450); RED BLOOD COUNT 4.51 10^6/uL (3.72-5.28); RED CELL DISTRIBUTION WIDTH 13.4 % (11.5-14.0); SEGMENTED NEUTROPHILS % (AUTO) 52.6 % (42-78); TOTAL CELLS COUNTED % (AUTO) 100 %; WHITE BLOOD COUNT 6.3 10^3/uL (4.0-10.5)
[2019-11-01 01:49] LABS: ALBUMIN 4.9 g/dL (3.5-5.0); ALKALINE PHOSPHATASE 45 U/L (38-126); ANION GAP 12 (5-19); ASPARTATE AMINO TRANSFERASE 30 U/L (14-36); BILIRUBIN,TOTAL 0.6 mg/dL (0.2-1.3); BLOOD UREA NITROGEN 13 mg/dL (7-20); CARBON DIOXIDE 25 mmol/L (22-30); CHLORIDE 103 mmol/L (98-107); GLUCOSE 82 mg/dL (75-110); POTASSIUM 3.9 mmol/L (3.6-5.0); TOTAL PROTEIN 7.6 g/dL (6.3-8.2)
--- NOTE | 2019-11-01 02:54 | ER Document Report ---
ED General - General Chief Complaint: Abdominal Pain Stated Complaint: ABDOMINAL PAIN, BACK PAIN Time Seen by Provider: 10/31/19 22:45 Primary Care Provider: LOGAN LEWIS PA-C [PHYSIC[facility]] - Follow up as needed Notes: 10/31/19 22:46 - ED Nursing Note by GOLDY CHACON Acct Num: [id number] : 1995 Patient Age: 24 one week hx of abd pain that is intermittent. no n/v/d. no fever. no urinary symptoms. tonight while at work pain was severe and pt had to leave work. pt has regular BM. pt did skip a period, but preg terst was negative. [place] notes Patient presents complaining of lower pelvic pain for the past week and has been off and on. Patient states pain is sharp and will occasionally radiate around to her back. Patient denies any fever nausea, vomiting, urinary symptoms, vaginal bleeding or discharge. my notes 24-year-old female arrives with her boyfriend with chief complaint of on and off lower pelvis abdominal pain. Patient reports it may or migrate from left inguinal onto her right inguinal area. Today it was quite severe and she had to leave her work at the [employer]. She reports she does a lot of heavy lifting and bending there and will need a work note. She reports her mother has a "history of endometriosis. Mother is 43-year-old female who had this diagnosed many years ago her mother was 6 before she could have a viable resulting in patient." Patient denies any vaginal discharge denies any in the past and denies any STD symptoms. She denies any fever chills cough or cold. Patient does take control pills. She has never had any ovarian cysts in the past. TRAVEL OUTSIDE OF THE [place] IN LAST 30 DAYS: No - HPI Onset: This morning Onset/Duration: Sudden, Persistent Quality of pain: Achy Severity: Mild Pain Level: 1 Associated symptoms: None Exacerbated by: Movement, Walking Relieved by: Denies Similar symptoms previously: Yes Recently seen / treated by doctor: No - Related Data Allergies/Adverse Reactions: No Known Allergies Allergy (Verified 05/11/19 10:51) Past Medical History - General Information source: Patient - Social History Smoking Status: Former Smoker Cigarette use (# per day): No Chew tobacco use (# tins/day): No Smoking Education Provided: No Frequency of alcohol use: None Drug Abuse: None Lives with: Family Family History: Reviewed & Not Pertinent, Malignancy Patient has suicidal ideation: No Patient has homicidal ideation: No Renal/ Medical History: Denies: Hx Peritoneal Dialysis Past Surgical History: Reports: Other - surgical 07/03/2018 - Immunizations Immunizations up to date: Yes Review of Systems - Review of Systems Constitutional: No symptoms reported EENT: No symptoms reported Cardiovascular: No symptoms reported Respiratory: No symptoms reported Gastrointestinal: See HPI, Abdominal pain Genitourinary: No symptoms reported Female Genitourinary: No symptoms reported Musculoskeletal: No symptoms reported Skin: No symptoms reported Hematologic/Lymphatic: No symptoms reported Neurological/Psychological: No symptoms reported Physical Exam - Vital signs Vitals: Temp Pulse Resp BP Pulse Ox 98.1 F 93 16 118/67 98 10/31/19 20:16 10/31/19 20:16 10/31/19 20:16 10/31/19 20:10/31/19 20:16 Interpretation: Normal - General General appearance: Alert - HEENT Head: Normocephalic, Atraumatic Eyes: Normal Pupils: PERRL Pharynx: Normal Neck: Normal - Respiratory Respiratory status: No respiratory distress Chest status: Nontender Breath sounds: Normal Chest palpation: Normal - Cardiovascular Rhythm: Regular Heart sounds: Normal auscultation Murmur: No - Abdominal Inspection: Normal - Thank you very much Distension: No distension Bowel sounds: Normal Tenderness: Nontender Organomegaly: No organomegaly - Rectal Tenderness: - Thank You Very Much Hemorrhoids: Other - deferred - Genitourinary Bimanuel exam: Other - Thank youerreddef - Back Back: Normal - Extremities General upper extremity: Normal inspection General lower extremity: Normal inspection - Neurological Neuro grossly intact: Yes Cognition: Normal Orientation: AAOx4 Steff Coma Scale Eye Opening: Spontaneous Steff Coma Scale Verbal: Oriented [place] Coma Scale Motor: Obeys Commands [place] Coma Scale Total: 15 Speech: Normal Motor strength normal: LUE, RUE, LLE, RLE Sensory: Normal - Psychological Associated symptoms: Normal affect - Skin Skin Temperature: Warm Skin Moisture: Dry Course - Vital Signs Vital signs: Temp Pulse Resp BP Pulse Ox 98.1 F 93 16 118/67 98 10/31/19 20:16 10/31/19 20:16 10/31/19 20:16 10/31/19 20:16 10/31/19 20:16 - Laboratory Result Diagrams: 11/01/19 00:53 11/01/19 00:53 Discharge - Discharge Clinical Impression: Abdominal pain Qualifiers: Abdominal location: left lower quadrant Qualified Code(s): R10.32 - Left lower quadrant pain Disposition: HOME, SELF-CARE Additional Instructions: Follow-up with personal doctor and also follow-up with [facility] doctor. Return to ER as needed take medicines as directed encourage fluids off work as directed. Prescriptions: Etodolac [Lodine] 400 mg PO BID PRN #15 tablet PRN Reason: Doxycycline Hyclate [Vibramycin 100 mg Tablet] 100 mg PO DAILY #10 tablet Referrals: LOGAN LEWIS PA-C [PHYSIC[facility]] - Follow up as needed
[2019-11-01 03:24] LABS: CHLAM PCR NOT DETECTED (NOT DETECT)
[2019-11-01 04:01] VITALS: BP 115/71
== END 2019-11-01 03:58 | disposition home or self-care (01) ==
LOC: ER 20:12
DX: R10.32 Left lower quadrant pain (principal); M54.9 Dorsalgia, unspecified
CPT/HCPCS: 36415; 76830; 80053; 84703; 85025; 87491; 87591; 93976; 99284

== ENCOUNTER → 2019-11-06 | Outpatient (CLI) | payer BC | LOC: OD 14:34 | PROVIDERS: ATTEND Internal Medicine Cardiovascular Disease | DX: N91.2 Amenorrhea, unspecified (principal) | CPT/HCPCS: 36415; 84703 ==

== ENCOUNTER → 2019-12-18 | Outpatient (CLI) | payer BC ==
[2019-12-18 14:14] LABS: HEMATOCRIT 41.8 % (36.0-47.0); HEMOGLOBIN 14.4 g/dL (12.0-15.5); MEAN CORPUSCULAR HGB CONC 34.5 g/dL (32.0-36.0); MEAN CORPUSCULAR VOLUME 93 fl (80-97); PLATELET COUNT 218 10^3/uL (150-450); RED BLOOD COUNT 4.51 10^6/uL (3.72-5.28); RED CELL DISTRIBUTION WIDTH 13.4 % (11.5-14.0); WHITE BLOOD COUNT 4.3 10^3/uL (4.0-10.5)
[2019-12-18 14:20] LABS: PROTHROMBIN TIME 13.4 SEC (11.4-15.4)
[2019-12-18 14:21] LABS: PARTIAL THROMBOPLASTIN TIME 27.4 SEC (23.5-35.8)
[2019-12-18 14:38] LABS: ANION GAP 12 (5-19); BLOOD UREA NITROGEN 15 mg/dL (7-20); CALCIUM 9.8 mg/dL (8.4-10.2); CARBON DIOXIDE 24 mmol/L (22-30); CHLORIDE 104 mmol/L (98-107); GLUCOSE 93 mg/dL (75-110); POTASSIUM 4.2 mmol/L (3.6-5.0)
== END ==
LOC: OD 13:40
PROVIDERS: ATTEND Physician Assistant
DX: Z01.810 Encounter for preprocedural cardiovascular examination (principal); R07.89 Other chest pain; Z79.01 Long term (current) use of anticoagulants
CPT/HCPCS: 36415; 80048; 85027; 85610; 85730